=== PATIENT | female | born 1935 | race Caucasian/White ===

== ENCOUNTER → 2019-06-25 18:52 | Outpatient (ROUT) | payer MEDICARE, OTHER, SELFPAY ==
[2019-06-25 18:59] LABS: Add Manual Diff / Slide Review NO; Basophils Absolute Auto 0 /uL (0-100); Basophils Percent Auto 0.9 % (0-2); Eosinophils Absolute Auto 100 /uL (0-450); Eosinophils Percent Auto 2.1 % (2-4); Hemoglobin 12.2 g/dL (12.0-16.0); Lymphocytes Absolute Auto 900 /uL (1100-4500); Lymphocytes Percent Auto 18.4 % (25-40); Mean Corpuscular HGB Conc 32.9 % (30-36); Mean Corpuscular Hemoglobin 28.8 PG (26-34); Mean Corpuscular Volume 87.5 fL (80-100); Monocytes Absolute Auto 500 /uL (0-900); Monocytes Percent Auto 9.7 % (3-14); Neutrophils Absolute Auto 3400 /uL (1500-7000); Neutrophils Percent Auto 68.9 % (50-75); Platelet Count 284 X10^3/uL (150-400); Red Blood Cell Count 4.23 X10^6/uL (4.0-5.2); Red Cell Distribution Width 14.8 % (11.6-14.8); White Blood Cell Count 4.9 X10^3/uL (4.5-11.0)
[2019-06-25 19:08] LABS: Alanine Aminotransferase 13 IU/L (<35); Albumin 4.2 g/dL (3.5-5.0); Albumin Globulin Ratio 1.2 (1.0-2.8); Alkaline Phosphatase 84 U/L (38-126); Aspartate Aminotransferase 24 IU/L (14-36); Bilirubin Total 0.4 mg/dL (0.2-1.3); Blood Urea Nitrogen 19 mg/dL (7-17); Carbon Dioxide 28 mmol/L (22-32); Chloride 101 mmol/L (98-107); Cholesterol 187 mg/dL (140-199); Estimated Glomerular Filt Rate 52.8 mL/min (>60); Globulin 3.5 g/dL (1.7-4.1); Glucose 90 mg/dL (80-110); HDL Cholesterol 72 mg/dL (40-60); HEMOLYSIS < 15 (0-50); LDL Cholesterol Calculated 83 mg/dL (<100); Potassium 4.4 mmol/L (3.4-5.1); Sodium 136 mmol/L (137-145); Total Protein 7.7 g/dL (6.3-8.2); Triglycerides 158 mg/dL (35-150)
== END ==
PROVIDERS: Visit Provider Physician Assistant
DX: I10 Essential (primary) hypertension (principal); E78.5 Hyperlipidemia, unspecified
CPT/HCPCS: 80053; 80061; 85025

== ENCOUNTER → 2020-01-27 19:40 | Outpatient (ROUT) | payer MEDICARE, OTHER, SELFPAY ==
[2020-01-27 19:52] LABS: HEMOLYSIS < 15 (0-50); Iron 86 ug/dL (37-170)
[2020-01-27 19:53] LABS: Add Manual Diff / Slide Review NO; Basophils Absolute Auto 0 /uL (0-100); Basophils Percent Auto 0.4 % (0-2); Eosinophils Absolute Auto 100 /uL (0-450); Hematocrit 36.5 % (36-46); Hemoglobin 12.4 g/dL (12.0-16.0); Lymphocytes Absolute Auto 1300 /uL (1100-4500); Lymphocytes Percent Auto 17.4 % (25-40); Mean Corpuscular Hemoglobin 29.9 PG (26-34); Monocytes Absolute Auto 600 /uL (0-900); Monocytes Percent Auto 8.1 % (3-14); Neutrophils Absolute Auto 5400 /uL (1500-7000); Neutrophils Percent Auto 73.1 % (50-75); Platelet Count 241 X10^3/uL (150-400); Red Blood Cell Count 4.14 X10^6/uL (4.0-5.2); Red Cell Distribution Width 14.5 % (11.6-14.8); White Blood Cell Count 7.4 X10^3/uL (4.5-11.0)
[2020-01-27 19:56] LABS: Alanine Aminotransferase 11 IU/L (<35); Albumin Globulin Ratio 1.2 (1.0-2.8); Alkaline Phosphatase 81 U/L (38-126); Aspartate Aminotransferase 24 IU/L (14-36); BUN Creatinine Ratio 22.9 (6-22); Bilirubin Total 0.3 mg/dL (0.2-1.3); Blood Urea Nitrogen 25 mg/dL (7-17); Calcium 9.7 mg/dL (8.4-10.2); Carbon Dioxide 27 mmol/L (22-32); Chloride 100 mmol/L (98-107); Cholesterol 212 mg/dL (140-199); Estimated Glomerular Filt Rate 47.7 mL/min (>60); Globulin 3.3 g/dL (1.7-4.1); Glucose 97 mg/dL (80-110); HDL Cholesterol 52 mg/dL (40-60); HEMOLYSIS < 15 (0-50); LDL Cholesterol Calculated 99 mg/dL (<100); Potassium 4.9 mmol/L (3.4-5.1); Sodium 134 mmol/L (137-145); Total Protein 7.3 g/dL (6.3-8.2); Triglycerides 305 mg/dL (35-150)
[2020-01-27 20:02] LABS: Percent Iron Saturation 28 % (15-50); Total Iron Binding Capacity 312 ug/dL (265-497); Transferrin 241 mg/dL (206-381)
[2020-01-27 20:29] LABS: Ferritin 36 ng/mL (11-264)
== END ==
PROVIDERS: Visit Provider Physician Assistant
DX: I73.00 Raynaud's syndrome without gangrene (principal); D50.9 Iron deficiency anemia, unspecified; N32.81 Overactive bladder; R31.0 Gross hematuria; E78.5 Hyperlipidemia, unspecified
CPT/HCPCS: 80053; 80061; 82728; 83540; 83550; 85025

== ENCOUNTER → 2020-01-28 09:42 | Outpatient (CLI) | payer MEDICARE, OTHER, SELFPAY ==
[2020-01-28 10:07] LABS: RBC Urine None Seen (0-5/HPF)
[2020-01-28 11:11] LABS: Appearance Urine UA CLEAR; Bilirubin Urine UA NEGATIVE (NEGATIVE); Color Urine UA YELLOW; Glucose Urine UA NEGATIVE (Negative); Ketones Urine UA NEGATIVE (NEGATIVE); Leukocyte Esterase Urine UA 3+ (NEGATIVE); Nitrite Urine UA NEGATIVE (Negative); Occult Blood Urine UA TRACE-INTACT (Negative); Protein Urine UA NEGATIVE (Negative); Specific Gravity Urine UA <=1.005 (1.000-1.035); Urobilinogen Urine UA 0.2 E.U./dL (0.2); pH Urine UA 6.5 (4.5-8.0)
[2020-01-28 11:37] LABS: Bacteria Urine Few (2-10); Squamous Epithelial Cell Urine 0-1 /HPF (0-5/HPF); Urine Comments CULTURE ORDERED; WBC Urine 10-30/HPF (0-5/HPF)
== END ==
PROVIDERS: Referring Provider Physician Assistant; Visit Provider Physician Assistant
DX: I73.00 Raynaud's syndrome without gangrene (principal); D50.9 Iron deficiency anemia, unspecified; N32.81 Overactive bladder; R31.0 Gross hematuria; E78.5 Hyperlipidemia, unspecified
CPT/HCPCS: 81001; 87086

== ENCOUNTER → 2020-02-20 11:32 | Outpatient (CLI) | payer MEDICARE, OTHER, SELFPAY | PROVIDERS: PCP Physician Assistant; Visit Provider Specialist | DX: N39.0 Urinary tract infection, site not specified (principal); N95.2 Postmenopausal atrophic vaginitis; R31.0 Gross hematuria; Z87.440 Personal history of urinary (tract) infections | CPT/HCPCS: 81002; 87077; 87086; 87186; 99214 ==

== ENCOUNTER → 2020-05-13 15:17 | Outpatient (CLI) | payer MEDICARE, OTHER, SELFPAY | PROVIDERS: PCP Physician Assistant; Visit Provider Specialist | DX: N39.0 Urinary tract infection, site not specified (principal); R31.9 Hematuria, unspecified; N95.2 Postmenopausal atrophic vaginitis; Z87.440 Personal history of urinary (tract) infections | CPT/HCPCS: 51798; 81002; 87077; 87086; 87186; 99214 ==

== ENCOUNTER → 2020-07-24 18:32 | Outpatient (ROUT) | payer MEDICARE, OTHER, SELFPAY | PROVIDERS: PCP Physician Assistant; Visit Provider Physician Assistant | DX: R30.0 Dysuria (principal) | CPT/HCPCS: 87077; 87086; 87186 ==

== ENCOUNTER → 2020-11-28 11:01 | Outpatient (CLI) | payer MEDICARE, OTHER, SELFPAY ==
[2020-11-28 13:09] LABS: Appearance Urine UA CLEAR; Bilirubin Urine UA NEGATIVE (NEGATIVE); Color Urine UA YELLOW; Glucose Urine UA NEGATIVE (Negative); Ketones Urine UA NEGATIVE (NEGATIVE); Leukocyte Esterase Urine UA 2+ (NEGATIVE); Nitrite Urine UA NEGATIVE (Negative); Occult Blood Urine UA NEGATIVE (Negative); Protein Urine UA NEGATIVE (Negative); Specific Gravity Urine UA 1.015 (1.000-1.035); Urobilinogen Urine UA 0.2 E.U./dL (0.2)
[2020-11-28 13:11] LABS: RBC Urine None Seen (0-5/HPF); pH Urine UA 6.5 (4.5-8.0)
[2020-11-28 13:19] LABS: Bacteria Urine Many (>30); WBC Urine 5-10/HPF (0-5/HPF)
== END ==
PROVIDERS: PCP Physician Assistant; Referring Provider Physician Assistant; Visit Provider Physician Assistant
DX: R39.9 Unspecified symptoms and signs involving the genitourinary system (principal)
CPT/HCPCS: 81003; 81015; 87077; 87086; 87186

== ENCOUNTER → 2021-02-03 10:36 | Outpatient (CLI) | payer MEDICARE, OTHER, SELFPAY ==
--- NOTE | 2021-02-03 | DI.US.S_ITS ---
PROCEDURE: US RENAL COMPLETE INDICATIONS: RECURRENT UTI;COLOVAGINAL FISTULA TECHNIQUE: Real-time scanning was performed of the kidneys and bladder, with image documentation. COMPARISON: None. FINDINGS: Kidneys: Kidneys are normal in size. Right kidney measures 9.1 cm long; left kidney measures 8.6 cm long. Right renal cortical thickness is 1.4 cm; left renal cortical thickness is 1 point cm. Renal cortical echotexture is normal. No hydronephrosis or nephrolithiasis. No suspicious solid mass lesions. Bladder: Urinary bladder decompressed and Not requested.visualized. Miscellaneous: No free pelvic fluid. IMPRESSION: Grossly normal appearance of the kidneys. Dictated by: Balaji GARG Interpreted: Alexys Wilson MD on 02/03/2021 at 11:43 Transcribed by: NELIA on 02/03/2021 at 11:43 Approved by: Alexys Wilson M.D. on 02/03/2021 at 18:02
--- NOTE | 2021-02-03 | DI.US.S_ITS ---
PROCEDURE: US PELVIC COMPLETE INDICATIONS: RECURRENT UTI;COLOVAGINAL FISTULA TECHNIQUE: Real-time scanning was performed of the pelvic organs, with image documentation. Additional endovaginal scanning was necessary due to incomplete visualization of the adnexal and endometrial structures by transabdominal scanning. COMPARISON: CT, ABDOMEN/PELVIS WITH CONTRAST, 01/09/2017, 20:05. FINDINGS: Uterus: Uterus is normal in size at 3.3 x 2.5 x 1.9 cm. No fibroids seen. The endometrium measures 5 mm in combined thickness. Cervix and vagina appear within normal limits. Ovaries: Not seen. Other: No pathologic free abdominal or pelvic fluid. IMPRESSION: 1. No fistula is identified. Consider further evaluation with fluoroscopy with rectal contrast. 2. Uterus is within normal limits. 3. Endometrium is within normal limits measuring 0.5 cm. 4. Ovaries are not seen. Dictated by: Alexys Wilson M.D. on 02/03/2021 at 12:36 Approved by: Alexys Wilson M.D. on 02/03/2021 at 12:42
== END ==
PROVIDERS: PCP Physician Assistant; Referring Provider Urology; Visit Provider Urology
DX: N39.0 Urinary tract infection, site not specified (principal); N82.4 Other female intestinal-genital tract fistulae
CPT/HCPCS: 76770; 76830; 76856

== ENCOUNTER → 2022-01-12 10:34 | Outpatient (CLI) | payer MEDICARE, OTHER, SELFPAY ==
--- NOTE | 2022-01-12 | DI.CT.S_ITS ---
PROCEDURE: CT ABDOMEN PELVIS W CON INDICATIONS: Left upper quadrant pain TECHNIQUE: After the administration of oral and IV contrast, axial sections were acquired from the lung bases to the pubic symphysis. Coronal and sagittal reformats were performed. For radiation dose reduction, the following was used: automated exposure control, adjustment of mA and/or kV according to patient size. COMPARISON: [facility], CT, ABDOMEN/PELVIS WITH CONTRAST, 01/09/2017, 20:05. FINDINGS: Image quality: Excellent. Lung bases: Subpleural fibrotic changes are seen. Areas pleural calcification can be seen. There is a small to moderate hiatal hernia. Heart: No significant findings. ABDOMEN: Liver: A stable cyst versus hemangioma can be seen at the right liver dome measuring 8 mm. Gallbladder: Layering gallstones are seen within the gallbladder. No additional CT abnormality of the gallbladder can be seen. Biliary ducts: Unremarkable. Pancreas: Unremarkable. Spleen: Unremarkable. Adrenal Glands: Unremarkable. Kidneys and Ureters: Unremarkable. Stomach and Bowel: Moderate proximal gastric wall thickening can be seen. No significant small bowel abnormality is seen. Moderate to prominent sigmoid diverticulosis, without lashanda findings of active diverticulitis. There is a moderate amount of stool seen within the colon. No significant additional colonic abnormality can be seen. Peritoneum: No abnormal intraperitoneal fluid. No free air. Ventral Wall: A mild periumbilical hernia is seen, containing fat. Abdominal Nodes: No retroperitoneal or mesenteric adenopathy by size criteria. Vessels: Aorta and inferior vena cava are normal in size. PELVIS: Pelvic Organs: The uterus appears normal for age. No adnexal masses are seen. Bladder: Unremarkable. Pelvic Nodes: No enlarged lymph nodes. Miscellaneous: No inguinal hernias are seen. Bones: There is moderate levoconvex thoracolumbar scoliosis. IMPRESSION: Moderate generalized gastric wall thickening is seen, which is suspected to be on the basis of poor distention. If clinically appropriate, please consider upper endoscopy for further evaluation. No significant additional left upper quadrant abnormality can be seen. There is a moderate amount of stool seen within the colon. Please correlate with an underlying history of constipation. Incidental note is made of: Pleural calcification. Please correlate with a history of asbestos exposure. Subpleural fibrotic change can be seen. Small to moderate hiatal hernia Moderate levoconvex scoliosis Stable liver cyst versus hemangioma Layering gallstones Fat containing periumbilical hernia Moderate to prominent sigmoid diverticulosis, without active diverticulitis Dictated by: Adrian Greene M.D. on 01/12/2022 at 14:50 Approved by: Adrian Greene M.D. on 01/12/2022 at 14:54
== END ==
PROVIDERS: PCP Physician Assistant; Referring Provider Internal Medicine; Visit Provider Internal Medicine
DX: R10.12 Left upper quadrant pain (principal); K57.30 Diverticulosis of large intestine without perforation or abscess without bleeding; K42.9 Umbilical hernia without obstruction or gangrene; M41.86 Other forms of scoliosis, lumbar region; J94.8 Other specified pleural conditions; K80.20 Calculus of gallbladder without cholecystitis without obstruction
CPT/HCPCS: 74177; Q9967

== ENCOUNTER → 2022-12-29 14:45 | Outpatient (CLI) | payer MEDICARE, OTHER, SELFPAY | PROVIDERS: PCP Physician Assistant; Referring Provider Urology; Visit Provider Urology | DX: N39.0 Urinary tract infection, site not specified (principal); R31.0 Gross hematuria; N95.2 Postmenopausal atrophic vaginitis; Z87.440 Personal history of urinary (tract) infections | CPT/HCPCS: 81002; 87077; 87086; 87186; 99214 ==

== ENCOUNTER → 2022-12-30 13:06 | Outpatient (CLI) | payer MEDICARE, OTHER, SELFPAY ==
[2022-12-30 14:02] LABS: BUN Creatinine Ratio 18.4 (6-22); Blood Urea Nitrogen 18 mg/dL (7-17); Calcium 9.4 mg/dL (8.4-10.2); Carbon Dioxide 26 mmol/L (22-32); Chloride 96 mmol/L (98-107); Estimated Glomerular Filt Rate 56 mL/min (>60); Glucose 140 mg/dL (80-110); HEMOLYSIS < 15 (0-50); Potassium 4.4 mmol/L (3.4-5.1); Sodium 133 mmol/L (137-145)
== END ==
PROVIDERS: PCP Physician Assistant; Referring Provider Urology; Visit Provider Urology
DX: R31.0 Gross hematuria (principal); Z87.440 Personal history of urinary (tract) infections
CPT/HCPCS: 36415; 80048

== ENCOUNTER → 2023-01-04 08:33 | Outpatient (CLI) | payer MEDICARE, OTHER, SELFPAY ==
--- NOTE | 2023-01-04 08:44 | DI.CT.S_ITS ---
PROCEDURE: CT IVP A/P W/WO INDICATIONS: RECURRING URINARY TRACT INFECTIONS/GROSS HEMATURIA TECHNIQUE: Optional 5 mm thick noncontrast images acquired from the diaphragm to the symphysis pubis. After the administration of intravenous contrast, 5 mm thick images acquired from the diaphragm to the symphysis pubis after a 10-minute delay. 2 mm thick coronal and sagittal reformats were then performed of the kidneys and ureters. For radiation dose reduction, the following was used: automated exposure control, adjustment of mA and/or kV according to patient size. COMPARISON: CT 01/09/2017. FINDINGS: Image quality: Excellent. Lung bases: Pleural plaque within the posterior left lower lobe. Bronchiectasis with reticulation sparing the subpleural space. Heart size is normal. Small hiatal hernia. Urinary system: Both kidneys are normal in size, without hydronephrosis or nephrolithiasis on pre-contrast images. No perinephric fat stranding. There is normal bilateral renal enhancement. Renal calyces appear normal in morphology when filled with contrast. Opacified portions of both ureters demonstrate normal caliber. Bladder wall thickness is normal. No calcified bladder stones. Bladder is under distended. No complex renal cystic lesions which require follow-up. Other solid organs: Liver is normal in size and enhancement. Gallbladder contain stones . Biliary system is non dilated, accounting for age related dilation. Pancreas enhances normally. Spleen is normal in size and enhancement. No adrenal nodules. Peritoneum and bowel: Bowel loops demonstrate normal wall thickness and caliber. No free fluid or air. Nodes and vessels: No retroperitoneal or mesenteric adenopathy by size criteria. Aorta and inferior vena cava are normal in size. Abdominal wall: 1.7 x 0.9 centimeter soft tissue with enhancement along the lateral margin of left hemithorax (series 4, image 45); there appears to be a tract between the pleural space and this soft tissue mass. Pelvis: No pathologic free pelvic fluid. No inguinal hernias or adenopathy. Bones: No suspicious bony lesions. No vertebral body compression fractures. IMPRESSION: No nephrolithiasis or filling defect within the opacified renal collecting system or ureters. Under distended bladder, suboptimal for evaluation of bladder malignancy. 1.7 x 0.9 centimeter soft tissue with enhancement along the lateral margin of left hemithorax (series 4, image 45); there appears to be a tract between the pleural space and this soft tissue mass. Additionally, there is calcified pleural plaque with mild soft tissue in the posterior left lower lobe. Findings appear similar compared with 2017. Differential for this process includes pleurodesis with enhancing scar tissue, significantly less likely mesothelioma (given stability) with extension into the soft tissues. Correlate with surgical history. Basilar reticulation with sparing of the subpleural space within the lungs. 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 This has slightly progressed since 2017. Dictated by: Edvin Tyler M.D. on 01/04/2023 at 10:37 Approved by: Edvin Tyler M.D. on 01/04/2023 at 10:53
== END ==
PROVIDERS: PCP Physician Assistant; Referring Provider Urology; Visit Provider Urology
DX: R31.0 Gross hematuria (principal); Z87.440 Personal history of urinary (tract) infections
CPT/HCPCS: 74178; Q9967

== ENCOUNTER → 2023-01-11 09:18 | Outpatient (CLI) | payer MEDICARE, OTHER, SELFPAY | PROVIDERS: PCP Physician Assistant; Visit Provider Urology | DX: R31.0 Gross hematuria (principal); N95.2 Postmenopausal atrophic vaginitis; Z87.440 Personal history of urinary (tract) infections | CPT/HCPCS: 51798; 52000; 81002; 87086; 99213 ==

== ENCOUNTER → 2023-06-22 09:22 | Outpatient (CLI) | payer MEDICARE, OTHER, SELFPAY ==
[2023-06-22 11:38] LABS: Appearance Urine UA SL CLOUDY; Bilirubin Urine UA NEGATIVE (NEGATIVE); Color Urine UA YELLOW; Glucose Urine UA NEGATIVE (Negative); Ketones Urine UA NEGATIVE (NEGATIVE); Leukocyte Esterase Urine UA 3+ (NEGATIVE); Nitrite Urine UA NEGATIVE (Negative); Occult Blood Urine UA TRACE-INTACT (Negative); Protein Urine UA NEGATIVE (Negative); Urobilinogen Urine UA 0.2 E.U./dL (0.2)
[2023-06-22 11:47] LABS: Bacteria Urine Many (>30); RBC Urine None Seen (0-5/HPF); Squamous Epithelial Cell Urine 1-5 /HPF (0-5/HPF); WBC Urine 30-100/HPF (0-5/HPF)
[2023-06-22 11:48] LABS: Culture Indicated Urine Specimen Cultured
== END ==
PROVIDERS: PCP Physician Assistant; Referring Provider Urology; Visit Provider Urology
DX: Z87.440 Personal history of urinary (tract) infections (principal)
CPT/HCPCS: 81001; 87077; 87086; 87186

== ENCOUNTER → 2023-07-12 09:07 | Outpatient (CLI) | payer MEDICARE, OTHER, SELFPAY | PROVIDERS: PCP Physician Assistant; Visit Provider Urology | DX: N39.0 Urinary tract infection, site not specified (principal); N95.2 Postmenopausal atrophic vaginitis; R31.9 Hematuria, unspecified; R35.1 Nocturia; Z87.440 Personal history of urinary (tract) infections; Z87.898 Personal history of other specified conditions | CPT/HCPCS: 51798; 81002; 87077; 87086; 87186; 99214 ==

== ENCOUNTER → 2023-07-20 09:49 | Outpatient (CLI) | payer MEDICARE, OTHER, SELFPAY ==
[2023-07-20 13:24] LABS: Bilirubin Urine UA NEGATIVE (NEGATIVE); Color Urine UA YELLOW; Glucose Urine UA NEGATIVE (Negative); Ketones Urine UA NEGATIVE (NEGATIVE); Leukocyte Esterase Urine UA 2+ (NEGATIVE); Nitrite Urine UA POSITIVE (Negative); Occult Blood Urine UA NEGATIVE (Negative); Protein Urine UA NEGATIVE (Negative); Specific Gravity Urine UA 1.015 (1.000-1.035); Urobilinogen Urine UA 0.2 E.U./dL (0.2)
[2023-07-20 13:29] LABS: Appearance Urine UA SL CLOUDY; pH Urine UA 5.5 (4.5-8.0)
[2023-07-20 13:36] LABS: Bacteria Urine Many (>30); Calcium Oxalate Crystals Urine Occasional; Culture Indicated Urine Specimen Cultured; RBC Urine None Seen (0-5/HPF); Squamous Epithelial Cell Urine 0-1 /HPF (0-5/HPF); WBC Urine 5-10/HPF (0-5/HPF)
== END ==
PROVIDERS: PCP Physician Assistant; Referring Provider Urology; Visit Provider Urology
DX: R35.1 Nocturia (principal); N39.0 Urinary tract infection, site not specified; R31.9 Hematuria, unspecified; R31.0 Gross hematuria
CPT/HCPCS: 81001; 87077; 87086; 87186

== ENCOUNTER 2023-07-23 10:44 | Emergency (ER) | payer MEDICARE, OTHER, SELFPAY ==
[2023-07-23] VITALS (12 sets, daily range): BP systolic 172–231; BP diastolic 81–131; PULSE 70–97; RESP 20; TEMP 36.7; O2SAT 97–100; BMI 40.4
--- NOTE | 2023-07-23 10:51 | ED_ITS ---
HPI - Nausea/Vomiting/Diarrhea General Chief complaint: Urogenital-Female Stated complaint: Increased Nausea, UTI on ABX Time Seen by Provider: 07/23/23 10:50 History of Present Illness HPI Narrative: Patient is a 87 old female who has frequent UTIs is followed by urology presents today with nausea vomiting after starting Macrobid 2 days ago. She is previously tolerated 10 days of Macrobid without any issue. She has a urinalysis from July 20 with which does show E coli that is pansensitive. She has allergies to cephalexin penicillin and sulfa. Today she presents with significant vomiting. No significant abdominal pain. She continues to have frequent urination but she says the dysuria has improved. Related Data Home Medications Medication Instructions Recorded Confirmed citalopram 20 mg tablet 20 mg PO DAILY 02/20/20 01/11/23 omeprazole 20 mg capsule,delayed 20 mg PO DAILY 05/13/20 01/11/23 release Previous Rx's Medication Instructions Recorded nitrofurantoin 100 mg PO BID #6 caps 01/11/23 monohydrate/macrocrystals 100 mg capsule nitrofurantoin 100 mg PO BID #20 caps 06/26/23 monohydrate/macrocrystals 100 mg capsule nitrofurantoin 100 mg PO BID #20 caps 07/14/23 monohydrate/macrocrystals 100 mg capsule nitrofurantoin 100 mg PO BID #20 caps 07/19/23 monohydrate/macrocrystals 100 mg capsule levofloxacin 500 mg tablet 500 mg PO DAILY #5 tabs 07/23/23 ondansetron 4 mg disintegrating 4 mg PO Q8H PRN nausea and 07/23/23 tablet vomiting #10 tabs Allergies Allergy/AdvReac Type Severity Reaction Status Date / Time Sulfa (Sulfonamide Allergy Intermediate RASH Verified 07/23/23 11:16 Antibiotics) [SULFA (SULFONAMIDE ANTIBIOTICS)] cephalexin [CEPHALEXIN] Allergy Mild UNKNOWN Verified 07/23/23 11:16 azithromycin Allergy Verified 07/23/23 11:16 Penicillins Allergy Verified 07/23/23 11:16 potassium Allergy Verified 07/23/23 11:16 Patient History Medical History (Updated 07/23/23 @ 12:25 by Emma Hardin DO) History of gross hematuria Nocturia Postmenopausal atrophic vaginitis History of recurrent UTI (urinary tract infection) UTI (urinary tract infection) Peripheral vascular disease Anemia Gross hematuria History of recurrent UTI (urinary tract infection) Depression GERD (gastroesophageal reflux disease) Raynauds disease Surgical History H/O breast biopsy History of tonsillectomy Family History Brother Age: 92 Polio Brother Cancer Father Cancer Mother Cancer Social History Smoking Status: Never smoker Smoking Status: Never smoker Exam Initial Vital Signs Initial Vital Signs: Vital Signs Pulse Rate 97 H 07/23/23 10:47 Blood Pressure 231/131 H 07/23/23 10:47 Pulse Oximetry 99 07/23/23 10:47 GENERAL: Alert 87-year-old female nauseous just vomited prior to arrival HEENT: Head atraumatic,EOMI, pupils reactive, face symmetric, moist mucous membranes CARDIOVASCULAR: Regular rate and rhythm without murmurs, rubs or gallops. RESPIRATORY: Breath sounds equal bilaterally, no wheezes rales or rhonchi. ABDOMEN: Soft, nontender. Normoactive bowel sounds all 4 quadrants. No guarding or rebound. EXTREMITIES: Normal range of motion, no clubbing or edema. Neurovascularly intact NEUROLOGICAL: Alert and oriented x4.Normal gait and speech. SKIN: Warm, dry, no laceration, no petechiae, no rashes or lesions. Course Orders Ordered: ED Orders 07/23/23 10:55 CBC Auto Diff [Complete Blood Count AUTO DIFF] Stat CMP [Comprehensive Metabolic Panel] Stat Lactate (Lactic Acid) Stat Discontinued Medications Sodium Chloride (Normal Saline 0.9%) 1,000 mls @ 1,000 mls/hr IV BOLUS ONE Stop: 07/23/23 11:50 Last Infusion: 07/23/23 12:15 Dose: Infused Documented By: Admin: 07/23/23 11:17 Dose: 1,000 mls/hr Documented By: BRINA Levofloxacin (Levaquin) 500 mg in 100 mls @ 100 mls/hr IV NOW ONE Stop: 07/23/23 11:51 Last Infusion: 07/23/23 12:29 Dose: Infused Documented By: Admin: 07/23/23 11:17 Dose: 100 mls/hr Documented By: BRINA Ondansetron HCl (Ondansetron 4 Mg/2 Ml Inj) 4 mg IV NOW ONE Stop: 07/23/23 10:52 Last Admin: 07/23/23 11:28 Dose: Not Given Documented By: BRINA Vital Signs Vital signs: Vital Signs - 8 hr 07/23/23 10:47 07/23/23 10:47 07/23/23 10:51 Temperature 98.1 F Pulse Rate 97 H 87 Respiratory Rate 20 Blood Pressure 231/131 H 231/131 H Pulse Oximetry 99 100 Oxygen Delivery Method Room Air 07/23/23 11:02 07/23/23 11:30 07/23/23 11:31 Temperature Pulse Rate 78 71 Respiratory Rate Blood Pressure 172/82 H Pulse Oximetry 100 Oxygen Delivery Method 07/23/23 11:31 07/23/23 12:01 07/23/23 12:03 Temperature Pulse Rate 70 92 H Respiratory Rate Blood Pressure 214/97 H Pulse Oximetry 100 Oxygen Delivery Method 07/23/23 12:03 07/23/23 12:04 07/23/23 12:30 Temperature Pulse Rate 70 88 Respiratory Rate Blood Pressure 214/97 H Pulse Oximetry 99 97 Oxygen Delivery Method Room Air 07/23/23 12:31 07/23/23 12:32 07/23/23 12:34 Temperature Pulse Rate 80 Respiratory Rate Blood Pressure 201/95 H 180/81 H Pulse Oximetry 97 98 Oxygen Delivery Method Room Air MDM - Nausea/Vomiting/Diarrhea Lab Data 07/23/23 10:55 07/23/23 10:55 Labs: Lab Results 07/23/23 Range/Units 10:55 WBC 7.8 (4.5-11.0) X10^3/uL RBC 4.24 (4.0-5.2) X10^6/uL Hgb 12.8 (12.0-16.0) g/dL Hct 37.9 (36-46) % MCV 89.2 (80-100) fL MCH 30.1 (26-34) PG MCHC 33.7 (30-36) % RDW 13.5 (11.6-14.8) % Plt Count 324 (150-400) X10^3/uL Neut % (Auto) Not Reportable Lymph % (Auto) Not Reportable [place] % (Auto) Not Reportable Eos % (Auto) Not Reportable Baso % (Auto) Not Reportable Lymph # (Auto) Not Reportable [place] # (Auto) Not Reportable Baso # (Auto) Not Reportable Total Counted 100 Seg Neutrophils % 69.0 (38-70) % Lymphocytes % (Manual) 12.0 L (25-45) % Atypical Lymphs % 10.0 H ( - 0) % Monocytes % (Manual) 6.0 (2-11) % Eosinophils % (Manual) 2.0 (2-4) % Basophils % (Manual) 1.0 (0-1) % Neutrophils # (Manual) 5382 ([id number]) /uL Hypersegmented Neuts 1+ RBC Morphology See below Anisocytosis 1+ H Microcytosis 1+ H Sodium 134 L (137-145) mmol/L Potassium 3.8 (3.4-5.1) mmol/L Chloride 98 (98-107) mmol/L Carbon Dioxide 27 (22-32) mmol/L BUN 16 (7-17) mg/dL Creatinine 0.76 (0.52-1.04) mg/dL Estimated GFR > 60 (>60) mL/min BUN/Creatinine Ratio 21.1 (6-22) Glucose 122 H (80-110) mg/dL Lactate 1.7 (0.7-2.1) mmol/L Calcium 10.3 H (8.4-10.2) mg/dL Total Bilirubin 0.6 (0.2-1.3) mg/dL AST 29 (14-36) IU/L ALT 19 (<35) IU/L Alkaline Phosphatase 86 (38-126) U/L Total Protein 8.9 H (6.3-8.2) g/dL Albumin 4.4 (3.5-5.0) g/dL Globulin 4.5 H (1.7-4.1) g/dL Albumin/Globulin Ratio 1.0 (1.0-2.8) Urine Dip Bedside Urine Glucose Negative Bedside Urine Bilirubin - Negative Bedside Urine Ketone - Negative Urine Specific [place] 1.015 Bedside Urine Occult Blood - Negative Bedside Urine pH 7.0 Bedside Urine Protein ++ 100 Bedside Urine Urobilinogen - Negative Bedside Urine Nitrite - Negative Bedside Urine Leukocytes - Negative Esterase MDM Narrative Medical decision making narrative: Patient 79-year-old female presents to nausea vomiting was started on Macrobid for UTI. Cultures report pain sensitivity to E coli. However she is multiple allergies to medications. She has no abdominal pain chest pain or shortness of breath. She is overall feeling a lot better after Zofran and fluids. She is given IV Levaquin in the ED. vomiting has stopped. blood Pressure remained elevated but she is asymptomatic, and ultimately went down by discharge. Blood work reviewed: CBC and CMP have been reviewed there is no significant abnormality she has no leukocytosis or KAREEM. Calcium is minimally elevated at 10.3 but unlikely significant. At this time no imaging is required. Urine Culture Final 07/22/23 Organism 1 Escherichia coli [place] Count >100,000 CFU/ml Action to follow No Further Workup 1. Escherichia coli M.I.C. RX --------- --- * Amoxicillin/Clavulanate <=2 S * Ampicillin <=2 S * Ampicillin/Sulbactam <=2 S * Cefazolin <=4 S * Cefepime <=1 S * Ceftazidime <=1 S * Ceftriaxone <=1 S * Ciprofloxacin <=0.25 S * Ertapenem <=0.5 S * Gentamicin <=1 S * Imipenem <=0.25 S * Levofloxacin <=0.12 S * Nitrofurantoin <=16 S * Tobramycin <=1 S * Trimethoprim/Sulfamethoxazole <=20 S * Piperacillin/Tazobactam <=4 S Discharge Plan Departure Patient Disposition: Home Clinical Impression: Medication reaction, Vomiting, Acute UTI Instructions: DI for Urinary Tract Infection (UTI), DI for Vomiting -- Adult Activity Restrictions/Additional Instructions: *You have been diagnosed with probable medication reaction, nausea vomiting bladder infection *What to do: At this time we will change up your antibiotic to see if that helps. *Continue to take medications as directed Stop taking nitrofurantoin Start taking levofloxacin 1 pill once a day for 5 days, start tomorrow Zofran 4 mg every 8 hours if needed for nausea or vomiting *Follow up with your primary care provider in 2-3 days or call [phone] *Return to ER if you should have persistent vomiting weakness chest pain abdominal pain or any new, worsening or concerning symptoms Prescriptions: New ondansetron 4 mg tablet,disintegrating 4 mg PO Q8H PRN (Reason: nausea and vomiting) Qty: 10 0RF levofloxacin 500 mg tablet 500 mg PO DAILY Qty: 5 0RF No Action nitrofurantoin monohyd/m-cryst 100 mg capsule 100 mg PO BID Qty: 20 0RF Rx Instructions: must administer with a meal/food nitrofurantoin monohyd/m-cryst 100 mg capsule 100 mg PO BID Qty: 20 0RF Rx Instructions: must administer with a meal/food nitrofurantoin monohyd/m-cryst 100 mg capsule 100 mg PO BID Qty: 20 0RF Rx Instructions: must administer with a meal/food citalopram 20 mg tablet 20 mg PO DAILY nitrofurantoin monohyd/m-cryst 100 mg capsule 100 mg PO BID Qty: 6 0RF Rx Instructions: must administer with a meal/food omeprazole 20 mg capsule,delayed release(DR/EC) 20 mg PO DAILY Referrals: Fiorella Mccoy PA-C [Primary Care Provider] - Stand Alone Forms: Patient Portal/API
--- NOTE | 2023-07-23 11:09 | PC.NURSE ---
Pt presents with worsening nausea this morning when she woke up to use the bathroom. Pt states she did not vomit. She currently denies nausea. Pt able to stand up and pivot to give a urine sample on the commode. She denies urinary pain or burning and states she feels a great relief after peeing. Her last BM was this past 07/21. She denies abdominal pain.
[2023-07-23 11:16] LABS: Hematocrit 37.9 % (36-46); Hemoglobin 12.8 g/dL (12.0-16.0); Mean Corpuscular HGB Conc 33.7 % (30-36); Mean Corpuscular Hemoglobin 30.1 PG (26-34); Mean Corpuscular Volume 89.2 fL (80-100); Platelet Count 324 X10^3/uL (150-400); Red Blood Cell Count 4.24 X10^6/uL (4.0-5.2); Red Cell Distribution Width 13.5 % (11.6-14.8); White Blood Cell Count 7.8 X10^3/uL (4.5-11.0)
[2023-07-23] MEDS: levoFLOXacin 500 MG/100 ML PIGGYBACK 100 MG IV (11:17)
[2023-07-23] MEDS: SODIUM CHLORIDE 0.9% 1,000 ML 1000 ML IV (11:17)
[2023-07-23 11:18] LABS: Alanine Aminotransferase 19 IU/L (<35); Albumin 4.4 g/dL (3.5-5.0); Alkaline Phosphatase 86 U/L (38-126); Aspartate Aminotransferase 29 IU/L (14-36); BUN Creatinine Ratio 21.1 (6-22); Bilirubin Total 0.6 mg/dL (0.2-1.3); Blood Urea Nitrogen 16 mg/dL (7-17); Calcium 10.3 mg/dL (8.4-10.2); Carbon Dioxide 27 mmol/L (22-32); Chloride 98 mmol/L (98-107); Estimated Glomerular Filt Rate > 60 mL/min (>60); Globulin 4.5 g/dL (1.7-4.1); Glucose 122 mg/dL (80-110); HEMOLYSIS < 15 (0-50); Potassium 3.8 mmol/L (3.4-5.1); Sodium 134 mmol/L (137-145); Total Protein 8.9 g/dL (6.3-8.2)
[2023-07-23 11:19] LABS: Lactate (Lactic Acid) 1.7 mmol/L (0.7-2.1)
[2023-07-23 11:26] LABS: Add Manual Diff / Slide Review YES
[2023-07-23 11:38] LABS: Neutrophils Absolute Manual 5382 /uL (3000-5900); Total Cells Counted 100
[2023-07-23 11:40] LABS: Anisocytosis 1+; Hypersegmented Neutrophils 1+; Microcytosis 1+
== END 2023-07-23 12:40 | disposition home or self-care (01) ==
PROVIDERS: Emergency Provider Emergency Medicine; PCP Physician Assistant
DX: R11.2 Nausea with vomiting, unspecified (principal); T37.8X5A Adverse effect of other specified systemic anti-infectives and antiparasitics, initial encounter; N39.0 Urinary tract infection, site not specified
CPT/HCPCS: 36415; 80053; 81003; 83605; 85007; 85025; 96365; 99284; J1956

== ENCOUNTER → 2023-08-11 10:10 | Outpatient (CLI) | payer MEDICARE, OTHER, SELFPAY | PROVIDERS: PCP Physician Assistant; Visit Provider Urology | DX: N39.0 Urinary tract infection, site not specified (principal) | CPT/HCPCS: 87086 ==

== ENCOUNTER 2023-08-11 10:32 | Emergency (ER) | payer MEDICARE, OTHER, SELFPAY ==
[2023-08-11] VITALS (16 sets, daily range): BP systolic 149–230; BP diastolic 72–108; PULSE 72–107; RESP 18–31; TEMP 36.7; O2SAT 93–100; BMI 18.9
--- NOTE | 2023-08-11 10:59 | ED.GENADULT ---
HPI - General Adult General Chief complaint: Urogenital-Female Stated complaint: sent by Urology, vomiting Time Seen by Provider: 08/11/23 10:43 Source: patient Mode of arrival: Ambulatory Limitations: no limitations History of Present Illness HPI narrative: Patient is an 87-year-old female. She has a history of recurrent urinary tract infections. She was at the urologist's office this morning as scheduled visit. She stated that she had a urine sample done. They told her that she had bacteria in her urine however there were going to wait until the culture results before starting any antibiotics. She states that while she was at the office she had an episode of vomiting. She also states that she had a bowel movement. This is the 1st bowel movement that she has had in several days. She was sent to the emergency department for further evaluation. Here in the ER she states she has not having chest pain, shortness of breath, nausea, abdominal pain. She is coughing up quite a bit of phlegm. She denies any fevers. She states she has been drinking quite a bit of water recently trying to get herself to urinate. She currently has the urge to urinate. She feels like she is emptying her bladder. Related Data Home Medications Medication Instructions Recorded Confirmed citalopram 20 mg tablet 20 mg PO DAILY 02/20/20 01/11/23 omeprazole 20 mg capsule,delayed 20 mg PO DAILY 05/13/20 01/11/23 release Previous Rx's Medication Instructions Recorded nitrofurantoin 100 mg PO BID #6 caps 01/11/23 monohydrate/macrocrystals 100 mg capsule nitrofurantoin 100 mg PO BID #20 caps 06/26/23 monohydrate/macrocrystals 100 mg capsule nitrofurantoin 100 mg PO BID #20 caps 07/14/23 monohydrate/macrocrystals 100 mg capsule nitrofurantoin 100 mg PO BID #20 caps 07/19/23 monohydrate/macrocrystals 100 mg capsule levofloxacin 500 mg tablet 500 mg PO DAILY #5 tabs 07/23/23 ondansetron 4 mg disintegrating 4 mg PO Q8H PRN nausea and 07/23/23 tablet vomiting #10 tabs Allergies Allergy/AdvReac Type Severity Reaction Status Date / Time Sulfa (Sulfonamide Allergy Intermediate RASH Verified 07/23/23 11:16 Antibiotics) [SULFA (SULFONAMIDE ANTIBIOTICS)] cephalexin [CEPHALEXIN] Allergy Mild UNKNOWN Verified 07/23/23 11:16 azithromycin Allergy Verified 07/23/23 11:16 Penicillins Allergy Verified 07/23/23 11:16 potassium Allergy Verified 07/23/23 11:16 Review of Systems Review of Systems ROS Unobtainable: All systems reviewed & are unremarkable except as noted in HPI and below Patient History Medical History History of gross hematuria Nocturia Postmenopausal atrophic vaginitis History of recurrent UTI (urinary tract infection) UTI (urinary tract infection) Peripheral vascular disease Anemia Gross hematuria History of recurrent UTI (urinary tract infection) Depression GERD (gastroesophageal reflux disease) Raynauds disease Surgical History H/O breast biopsy History of tonsillectomy Family History Brother Age: 92 [place] Brother Cancer Father Cancer Mother Cancer Social History Smoking Status: Never smoker Smoking Status: Never smoker alcohol intake frequency: holidays/special occasions only Substance Use Type: does not use Exam Initial Vital Signs Initial Vital Signs: Vital Signs Pulse Rate 84 08/11/23 10:44 Blood Pressure 193/96 H 08/11/23 10:44 Const General: cooperative, comfortable and No ill appearing HENMT Head: normal to inspection and normocephalic Resp Effort & Inspection: normal respiratory effort Auscultation: clear to auscultation bilaterally Cardio Rate: regular rate Rhythm: regular rhythm GI Inspection: normal to inspection and non-distended Palpation: soft and No tender Skin General: no rashes or lesions noted Neuro General: patient alert, patient awake and moves all extremities Course Orders Ordered: ED Orders 08/11/23 10:50 Complete Blood Count AUTO DIFF Stat Comprehensive Metabolic Panel Stat Lipase Stat 08/11/23 11:09 XR abdomen 1V Stat 08/11/23 14:04 CT abdomen pelvis w con Stat Discontinued Medications Sodium Chloride (Normal Saline 0.9%) 1,000 mls @ 1,000 mls/hr IV BOLUS ONE Stop: 08/11/23 13:42 Last Infusion: 08/11/23 13:29 Dose: Infused Documented By: Admin: 08/11/23 12:45 Dose: 1,000 mls/hr Documented By: ANA ROSA Ondansetron HCl (Ondansetron 4 Mg/2 Ml Inj) 4 mg IV NOW ONE Stop: 08/11/23 13:41 Last Admin: 08/11/23 13:52 Dose: 4 mg Documented By: TELMA Vital Signs Vital signs: Vital Signs - 8 hr 08/11/23 10:44 08/11/23 10:44 08/11/23 10:50 Temperature 98.0 F Pulse Rate 84 75 Respiratory Rate 18 Blood Pressure 193/96 H 193/96 H Pulse Oximetry 99 Oxygen Delivery Method Room Air 08/11/23 11:00 08/11/23 11:01 08/11/23 11:01 Temperature Pulse Rate 79 Respiratory Rate Blood Pressure 160/92 H Pulse Oximetry 96 Oxygen Delivery Method 08/11/23 11:30 08/11/23 12:00 08/11/23 12:22 Temperature Pulse Rate 73 72 Respiratory Rate 29 H 24 Blood Pressure 149/108 H Pulse Oximetry 96 99 Oxygen Delivery Method 08/11/23 12:22 08/11/23 12:30 08/11/23 12:38 Temperature Pulse Rate 90 80 Respiratory Rate 29 H 27 H Blood Pressure 176/81 H Pulse Oximetry 94 97 Oxygen Delivery Method 08/11/23 12:38 08/11/23 13:00 08/11/23 13:00 Temperature Pulse Rate 77 78 Respiratory Rate 31 H 25 H Blood Pressure 171/79 H Pulse Oximetry 93 Oxygen Delivery Method 08/11/23 14:07 08/11/23 14:09 08/11/23 14:09 Temperature Pulse Rate 74 107 H Respiratory Rate 24 Blood Pressure 230/104 H Pulse Oximetry 99 96 Oxygen Delivery Method 08/11/23 14:11 08/11/23 14:11 08/11/23 14:30 Temperature Pulse Rate 91 H Respiratory Rate 30 H Blood Pressure 183/81 H 173/80 H Pulse Oximetry 100 Oxygen Delivery Method 08/11/23 14:30 08/11/23 14:39 08/11/23 14:39 Temperature Pulse Rate 80 72 Respiratory Rate 24 26 H Blood Pressure 168/75 H Pulse Oximetry 93 Oxygen Delivery Method Medical Decision Making Lab Data Lab results reviewed: Yes I reviewed the patient's lab results. 08/11/23 10:50 08/11/23 10:50 Labs: Lab Results 08/11/23 Range/Units 10:50 WBC 7.9 (4.5-11.0) X10^3/uL RBC 3.93 L (4.0-5.2) X10^6/uL Hgb 11.7 L (12.0-16.0) g/dL Hct 34.7 L (36-46) % MCV 88.2 (80-100) fL MCH 29.7 (26-34) PG MCHC 33.6 (30-36) % RDW 13.7 (11.6-14.8) % Plt Count 288 (150-400) X10^3/uL Neut % (Auto) 71.0 (50-75) % Lymph % (Auto) 17.7 L (25-40) % [place] % (Auto) 8.6 (3-14) % Eos % (Auto) 2.0 (2-4) % Baso % (Auto) 0.7 (0-2) % Neut # (Auto) 5600 (9117-0428) /uL Lymph # (Auto) 1400 (7500-7011) /uL [place] # (Auto) 700 (0-900) /uL Eos # (Auto) 200 (0-450) /uL Baso # (Auto) 100 (0-100) /uL Sodium 123 L (137-145) mmol/L Potassium 4.1 (3.4-5.1) mmol/L Chloride 90 L (98-107) mmol/L Carbon Dioxide 21 L (22-32) mmol/L BUN 20 H (7-17) mg/dL Creatinine 0.79 (0.52-1.04) mg/dL Estimated GFR > 60 (>60) mL/min BUN/Creatinine Ratio 25.3 H (6-22) Glucose 93 (80-110) mg/dL Calcium 9.5 (8.4-10.2) mg/dL Total Bilirubin 0.7 (0.2-1.3) mg/dL AST TNP ALT 17 (<35) IU/L Alkaline Phosphatase 77 (38-126) U/L Total Protein 8.4 H (6.3-8.2) g/dL Albumin 4.4 (3.5-5.0) g/dL Globulin 4.0 (1.7-4.1) g/dL Albumin/Globulin Ratio 1.1 (1.0-2.8) Lipase 308 H (23-300) U/L Imaging Data Abdominal x-ray: Radiologist's Impression: PROCEDURE: XR ABDOMEN 1V INDICATIONS: vomiting TECHNIQUE: One view of the abdomen acquired. COMPARISON: Merged With [facility], CT, CT IVP A/P W/WO, 01/04/2023, 8:46. FINDINGS: Surgical changes and devices: None. Bowel: Bowel gas pattern is normal. Soft tissues: No suspicious abdominal calcifications. Visualized solid organ contours appear normal in size. Bones: Left convex scoliosis is redemonstrated, unchanged from the CT dated January 04, 2023. IMPRESSION: No acute abnormality. CT scan - abdomen/pelvis: Radiologist's Impression: PROCEDURE: CT ABDOMEN PELVIS W CON INDICATIONS: Vomiting, constipation, lightheadedness TECHNIQUE: After the administration of intravenous contrast, axial sections acquired from the lung bases to the pubic symphysis. Coronal and sagittal reformats were performed. For radiation dose reduction, the following was used: automated exposure control, adjustment of mA and/or kV according to patient size. COMPARISON: Merged With [facility], CT, CT IVP A/P W/WO, 01/04/2023, 8:46. Merged With [facility], CT, CT ABDOMEN PELVIS W CON, 01/12/2022, 12:27. Merged With [facility], CT, ABDOMEN/PELVIS WITH CONTRAST, 01/09/2017, 20:05. FINDINGS: Image quality: Diagnostic. Lower Chest: Stable chronic lung disease, granuloma left lower lobe, chronic posterior left pleural calcifications. Small hiatal hernia. ABDOMEN: Liver: No solid mass. Gallbladder: Scattered nonobstructive partially calcified gallstones again noted. Biliary ducts: No biliary dilation. Pancreas: No ductal dilation. Spleen: Size is within normal limits. Adrenal Glands: No adrenal nodules. Kidneys and Ureters: No hydronephrosis. No solid mass. No complex renal cystic lesion which requires follow up. Stomach and Bowel: Normal colonic caliber, without significant wall thickening. [id number] colonic obstipation. Peritoneum: No abnormal intraperitoneal fluid. No free air. Ventral Wall: No hernia. Abdominal Nodes: No retroperitoneal or mesenteric adenopathy by size criteria. Vessels: Aorta and inferior vena cava are normal in size. PELVIS: Pelvic Organs: Unremarkable. Bladder: Unremarkable. Pelvic Nodes: No enlarged lymph nodes. Miscellaneous: No inguinal hernias are seen. [id number]-[id number] chronic obstipation. Bones: No aggressive osseous abnormality. IMPRESSION: No intestinal obstruction or perforation. Chronic colonic obstipation, [id number]-[id number] in severity. Gallstones again noted within the gallbladder lumen which does not show evidence of acute inflammation or adjacent biliary distension. Chronic lung disease, chronic pleural calcifications on the left. Overall no definite acute disease. MDM Narrative Medical decision making narrative: Patient states she is feeling better after fluids. CT scan shows quite a bit of stool in the colon. Sounds like she has had some issues with constipation recently but she did have soft bowel movement this morning. I suspect that her hyponatremia is because she was drinking so much water this morning in order to urinate. No fevers. She feels better after Zofran as well. She has Zofran at home. We discussed a good bowel regimen. We are going to wait until the urine culture results from the clinic visit earlier today before starting any antibiotics. She was given return precautions. She expressed understanding and agreement. Discharge Plan Departure Patient Disposition: Home Clinical Impression: Constipation Instructions: DI for Constipation Activity Restrictions/Additional Instructions: I do recommend that you continue with the bowel regimen to include a laxative like we discussed. You should be receiving a call from the urology clinic when the urine culture results if they need to start you on antibiotics. Return to the emergency department for new symptoms. Prescriptions: No Action nitrofurantoin monohyd/m-cryst 100 mg capsule 100 mg PO BID Qty: 20 0RF Rx Instructions: must administer with a meal/food nitrofurantoin monohyd/m-cryst 100 mg capsule 100 mg PO BID Qty: 20 0RF Rx Instructions: must administer with a meal/food nitrofurantoin monohyd/m-cryst 100 mg capsule 100 mg PO BID Qty: 20 0RF Rx Instructions: must administer with a meal/food ondansetron 4 mg tablet,disintegrating 4 mg PO Q8H PRN (Reason: nausea and vomiting) Qty: 10 0RF levofloxacin 500 mg tablet 500 mg PO DAILY Qty: 5 0RF citalopram 20 mg tablet 20 mg PO DAILY nitrofurantoin monohyd/m-cryst 100 mg capsule 100 mg PO BID Qty: 6 0RF Rx Instructions: must administer with a meal/food omeprazole 20 mg capsule,delayed release(DR/EC) 20 mg PO DAILY Referrals: Fiorella Mccoy PA-C [Primary Care Provider] - Stand Alone Forms: Patient Portal/API
--- NOTE | 2023-08-11 11:09 | DI.RAD.S_ITS ---
PROCEDURE: XR ABDOMEN 1V INDICATIONS: vomiting TECHNIQUE: One view of the abdomen acquired. COMPARISON: [facility], CT, CT IVP A/P W/WO, 01/04/2023, 8:46. FINDINGS: Surgical changes and devices: None. Bowel: Bowel gas pattern is normal. Soft tissues: No suspicious abdominal calcifications. Visualized solid organ contours appear normal in size. Bones: Left convex scoliosis is redemonstrated, unchanged from the CT dated January 04, 2023. IMPRESSION: No acute abnormality. Dictated by: Yani Steward M.D. on 08/11/2023 at 12:10 Approved by: Yani Steward M.D. on 08/11/2023 at 12:11
[2023-08-11 11:20] LABS: Add Manual Diff / Slide Review NO; Basophils Absolute Auto 100 /uL (0-100); Basophils Percent Auto 0.7 % (0-2); Eosinophils Absolute Auto 200 /uL (0-450); Hematocrit 34.7 % (36-46); Hemoglobin 11.7 g/dL (12.0-16.0); Lymphocytes Absolute Auto 1400 /uL (1100-4500); Lymphocytes Percent Auto 17.7 % (25-40); Mean Corpuscular HGB Conc 33.6 % (30-36); Mean Corpuscular Hemoglobin 29.7 PG (26-34); Mean Corpuscular Volume 88.2 fL (80-100); Monocytes Absolute Auto 700 /uL (0-900); Monocytes Percent Auto 8.6 % (3-14); Neutrophils Absolute Auto 5600 /uL (1500-7000); Platelet Count 288 X10^3/uL (150-400); Red Blood Cell Count 3.93 X10^6/uL (4.0-5.2); Red Cell Distribution Width 13.7 % (11.6-14.8); White Blood Cell Count 7.9 X10^3/uL (4.5-11.0)
[2023-08-11 11:46] LABS: Alanine Aminotransferase 17 IU/L (<35); Albumin 4.4 g/dL (3.5-5.0); Albumin Globulin Ratio 1.1 (1.0-2.8); Alkaline Phosphatase 77 U/L (38-126); BUN Creatinine Ratio 25.3 (6-22); Bilirubin Total 0.7 mg/dL (0.2-1.3); Blood Urea Nitrogen 20 mg/dL (7-17); Calcium 9.5 mg/dL (8.4-10.2); Carbon Dioxide 21 mmol/L (22-32); Chloride 90 mmol/L (98-107); Estimated Glomerular Filt Rate > 60 mL/min (>60); Glucose 93 mg/dL (80-110); Lipase 308 U/L (23-300); Potassium 4.1 mmol/L (3.4-5.1); Sodium 123 mmol/L (137-145); Total Protein 8.4 g/dL (6.3-8.2)
[2023-08-11] MEDS: SODIUM CHLORIDE 0.9% 1,000 ML 1000 ML IV (12:45)
[2023-08-11] MEDS: ONDANSETRON 4 MG/2 ML INJ IV (13:52)
--- NOTE | 2023-08-11 14:03 | PC.NURSE ---
ambulated to the bathroom with walker.
--- NOTE | 2023-08-11 14:04 | DI.CT.S_ITS ---
PROCEDURE: CT ABDOMEN PELVIS W CON INDICATIONS: Vomiting, constipation, lightheadedness TECHNIQUE: After the administration of intravenous contrast, axial sections acquired from the lung bases to the pubic symphysis. Coronal and sagittal reformats were performed. For radiation dose reduction, the following was used: automated exposure control, adjustment of mA and/or kV according to patient size. COMPARISON: [facility], CT, CT IVP A/P W/WO, 01/04/2023, 8:46. [facility], CT, CT ABDOMEN PELVIS W CON, 01/12/2022, 12:27. [facility], CT, ABDOMEN/PELVIS WITH CONTRAST, 01/09/2017, 20:05. FINDINGS: Image quality: Diagnostic. Lower Chest: Stable chronic lung disease, granuloma left lower lobe, chronic posterior left pleural calcifications. Small hiatal hernia. ABDOMEN: Liver: No solid mass. Gallbladder: Scattered nonobstructive partially calcified gallstones again noted. Biliary ducts: No biliary dilation. Pancreas: No ductal dilation. Spleen: Size is within normal limits. Adrenal Glands: No adrenal nodules. Kidneys and Ureters: No hydronephrosis. No solid mass. No complex renal cystic lesion which requires follow up. Stomach and Bowel: Normal colonic caliber, without significant wall thickening. Qbyd-ax-wmbxvpyu colonic obstipation. Peritoneum: No abnormal intraperitoneal fluid. No free air. Ventral Wall: No hernia. Abdominal Nodes: No retroperitoneal or mesenteric adenopathy by size criteria. Vessels: Aorta and inferior vena cava are normal in size. PELVIS: Pelvic Organs: Unremarkable. Bladder: Unremarkable. Pelvic Nodes: No enlarged lymph nodes. Miscellaneous: No inguinal hernias are seen. Neqi-bi-bacgukfu chronic obstipation. Bones: No aggressive osseous abnormality. IMPRESSION: No intestinal obstruction or perforation. Chronic colonic obstipation, hezq-tk-yxkyxsle in severity. Gallstones again noted within the gallbladder lumen which does not show evidence of acute inflammation or adjacent biliary distension. Chronic lung disease, chronic pleural calcifications on the left. Overall no definite acute disease. Dictated by: David Quintanilla M.D. on 08/11/2023 at 14:39 Approved by: aDvid Quintanilla M.D. on 08/11/2023 at 14:48
[2023-08-11 15:22] LABS: Aspartate Aminotransferase 56 IU/L (14-36); HEMOLYSIS 44 (0-50)
== END 2023-08-11 15:30 | disposition home or self-care (01) ==
PROVIDERS: Emergency Provider Emergency Medicine; PCP Physician Assistant
DX: K59.00 Constipation, unspecified (principal); R11.2 Nausea with vomiting, unspecified; N39.0 Urinary tract infection, site not specified; N95.2 Postmenopausal atrophic vaginitis; R35.1 Nocturia; R68.89 Other general symptoms and signs; R53.81 Other malaise; R53.83 Other fatigue; Z87.440 Personal history of urinary (tract) infections; Z87.898 Personal history of other specified conditions
CPT/HCPCS: 36415; 51798; 74018; 74177; 80053; 81002; 83690; 85025; 87086; 96374; 99214; 99284; J2405

== ENCOUNTER → 2023-08-14 10:01 | Outpatient (CLI) | payer MEDICARE, OTHER, SELFPAY ==
[2023-08-14 13:20] LABS: Alanine Aminotransferase 15 IU/L (<35); Albumin 4.2 g/dL (3.5-5.0); Albumin Globulin Ratio 1.1 (1.0-2.8); Alkaline Phosphatase 68 U/L (38-126); Aspartate Aminotransferase 25 IU/L (14-36); BUN Creatinine Ratio 19.8 (6-22); Bilirubin Total 0.5 mg/dL (0.2-1.3); Blood Urea Nitrogen 17 mg/dL (7-17); Calcium 10.1 mg/dL (8.4-10.2); Carbon Dioxide 28 mmol/L (22-32); Chloride 93 mmol/L (98-107); Estimated Glomerular Filt Rate > 60 mL/min (>60); Globulin 3.9 g/dL (1.7-4.1); Glucose 96 mg/dL (80-110); HEMOLYSIS < 15 (0-50); Potassium 4.5 mmol/L (3.4-5.1); Sodium 130 mmol/L (137-145); Total Protein 8.1 g/dL (6.3-8.2)
== END ==
LOC: LAB 10:03
PROVIDERS: PCP Family Medicine; Referring Provider Family Medicine; Visit Provider Family Medicine
DX: I10 Essential (primary) hypertension (principal)
CPT/HCPCS: 36415; 80053

== ENCOUNTER → 2023-09-29 11:48 | Outpatient (CLI) | payer MEDICARE, OTHER, SELFPAY ==
[2023-09-29 12:10] LABS: Appearance Urine UA CLEAR; Bilirubin Urine UA NEGATIVE (NEGATIVE); Color Urine UA YELLOW; Glucose Urine UA NEGATIVE (Negative); Ketones Urine UA NEGATIVE (NEGATIVE); Leukocyte Esterase Urine UA 1+ (NEGATIVE); Nitrite Urine UA POSITIVE (Negative); Occult Blood Urine UA NEGATIVE (Negative); Protein Urine UA TRACE (Negative); Specific Gravity Urine UA 1.015 (1.000-1.035); Urobilinogen Urine UA 0.2 E.U./dL (0.2)
[2023-09-29 12:11] LABS: Urine Volume 10mL (spun); pH Urine UA 5.5 (4.5-8.0)
[2023-09-29 12:16] LABS: Bacteria Urine Many (>30); Culture Indicated Urine Specimen Cultured; RBC Urine None Seen (0-5/HPF); Squamous Epithelial Cell Urine 0-1 /HPF (0-5/HPF); WBC Urine 5-10/HPF (0-5/HPF)
== END ==
PROVIDERS: PCP Family Medicine; Visit Provider Family Medicine
DX: N39.0 Urinary tract infection, site not specified (principal)
CPT/HCPCS: 81001; 87077; 87086; 87186

== ENCOUNTER → 2023-10-13 14:30 | Outpatient (CLI) | payer MEDICARE, OTHER, SELFPAY | PROVIDERS: PCP Family Medicine; Visit Provider Family Medicine | DX: Z87.440 Personal history of urinary (tract) infections (principal) | CPT/HCPCS: 87077; 87086; 87186 ==

== ENCOUNTER → 2023-10-18 16:38 | Outpatient (CLI) | payer MEDICARE, OTHER, SELFPAY | PROVIDERS: PCP Family Medicine; Visit Provider Family Medicine | DX: Z87.440 Personal history of urinary (tract) infections (principal) | CPT/HCPCS: 87086 ==

== ENCOUNTER → 2023-12-04 11:39 | Outpatient (CLI) | payer MEDICARE, OTHER, SELFPAY ==
[2023-12-04 14:27] LABS: Appearance Urine UA SL CLOUDY; Bilirubin Urine UA NEGATIVE (NEGATIVE); Color Urine UA YELLOW; Glucose Urine UA NEGATIVE (Negative); Ketones Urine UA TRACE (NEGATIVE); Leukocyte Esterase Urine UA 2+ (NEGATIVE); Nitrite Urine UA POSITIVE (Negative); Occult Blood Urine UA NEGATIVE (Negative); Protein Urine UA NEGATIVE (Negative); Urobilinogen Urine UA 0.2 E.U./dL (0.2)
[2023-12-04 14:43] LABS: Bacteria Urine Many (>30); Culture Indicated Urine Specimen Cultured; RBC Urine None Seen (0-5/HPF); Squamous Epithelial Cell Urine 1-5 /HPF (0-5/HPF); Urine Volume 10mL (spun); WBC Urine 10-30/HPF (0-5/HPF)
== END ==
PROVIDERS: PCP Family Medicine; Referring Provider Family Medicine; Visit Provider Family Medicine
DX: R30.0 Dysuria (principal)
CPT/HCPCS: 81001; 87077; 87086

== ENCOUNTER 2023-12-07 10:09 | Emergency (ER) | payer MEDICARE, OTHER, SELFPAY ==
[2023-12-07] VITALS (7 sets, daily range): BP systolic 210; BP diastolic 89; PULSE 81–92; RESP 20; TEMP 36.8; O2SAT 92–97; BMI 18.1
--- NOTE | 2023-12-07 10:19 | DI.CT.S_ITS ---
PROCEDURE: CT KIDNEY URETER BLADDER (KUB) INDICATIONS: intermittent flank pain, UTI, chills, rigors TECHNIQUE: Axial sections were acquired from the lung bases to the pubic symphysis. Coronal and sagittal reformats were performed. For radiation dose reduction, the following was used: automated exposure control, adjustment of mA and/or kV according to patient size. COMPARISON: CT, CT IVP A/P W/WO, 01/04/2023, 8:46. CT, CT ABDOMEN PELVIS W CON, 01/12/2022, 12:27. [facility], CT, CT ABDOMEN PELVIS W CON, 08/11/2023, 13:52. FINDINGS: Image quality: Diagnostic. Lower Chest: There are calcified pleural plaques and pleural thickening in the left hemithorax. A calcified nodule in the left lower lobe, most likely an old granuloma. Lower lobe subpleural septal thickening and pulmonary fibrosis. There is a moderate-sized hiatal hernia. URINARY: Right Kidney: No stones or hydronephrosis. Right Ureter: No hydroureter. Left Kidney: No stones or hydronephrosis. Left Ureter: No hydroureter. Bladder: Normal wall thickness. No stones. ABDOMEN: Liver: No contour-deforming solid mass. Gallbladder: There are gallstones. Gallbladder is distended. No gallbladder wall thickening or pericholecystic fluid collection Biliary ducts: No biliary dilation. Pancreas: No ductal dilation. Spleen: Size is within normal limits. Adrenal Glands: No adrenal nodules. Stomach and Bowel: Normal bowel caliber, without significant wall thickening. There is a large amount of stool in colon. Diverticulosis without diverticulitis. Peritoneum: No abnormal intraperitoneal fluid. No free air. Ventral Wall: No hernia. Abdominal Nodes: No enlarged retroperitoneal or mesenteric lymph nodes. Vessels: Aorta and inferior vena cava are normal in size. PELVIS: Pelvic Organs: Unremarkable. Pelvic Nodes: Unremarkable. Miscellaneous: No inguinal hernias are seen. Bones: Moderate levoscoliosis. Xhuydnkm-vb-lnnmyp spondylitic changes in lumbar spine. IMPRESSION: 1. No obstructing stones or hydronephrosis. 2. Cholelithiasis. Gallbladder is distended. No gallbladder wall thickening or pericholecystic fluid. 3. Pleural thickening and calcified pleural plaques in the left hemithorax, which probably secondary to prior hemothorax, infection (empyema) or pleural disease. Recommend clinical correlation. 4. Diverticulosis without diverticulitis. 5. A moderate-sized hiatal hernia. 6. Scoliosis and spondylitic changes in lumbar spine. 7. Thickening interstitium and pulmonary fibrosis in visualized lung. Dictated by: Mandi Rahman M.D. on 12/07/2023 at 12:20 Approved by: Mandi Rahman M.D. on 12/07/2023 at 12:50
--- NOTE | 2023-12-07 10:23 | ED.GENADULT ---
HPI - General Adult General Chief complaint: Urogenital-Female Stated complaint: UTI,nausea Time Seen by Provider: 12/07/23 10:19 Source: patient, EMS, RN notes reviewed and old records reviewed Mode of arrival: EMS Limitations: no limitations History of Present Illness HPI narrative: 87-year-old female who presents with complaint urinary symptoms with dysuria urgency and frequency starting, patient had a UA dropped off on Monday she has not heard back results she has the result but not been contacted. Patient states she continues to have symptoms she has had a little bit intermittent flank pain although she states it does not hurt currently. She denies any anterior abdominal pain. She has had chills and but no objective fevers. She states no chest pain or shortness of breath. Patient states no nausea or vomiting. No diarrhea constipation. She has not had a bowel movement since yesterday but states passing gas regularly. No swelling in extremities. Patient states she does have multiple medication allergies and they have talked about being tested with an pipeline integrity engineer for 2 allergies she has a penicillin cephalexin allergy. Allergy to sulfa and often has resistance to Cipro on her UA with recurrent UTIs. Patient states no tobacco, occasional alcohol, no recreational drugs. She lives independently with her at [facility]. Her primary care physician is Dr. Oquendo. Related Data Home Medications Medication Instructions Recorded Confirmed omeprazole 20 mg capsule,delayed 20 mg PO DAILY 05/13/20 09/29/23 release Previous Rx's Medication Instructions Recorded estradiol 2 mg (7.5 mcg/24 hour) 1 vag ring vaginal [id number] #1 ea 09/29/23 vaginal ring (Estring) gabapentin 100 mg capsule 200 mg (2 x 100 mg) PO BEDTIME 09/29/23 #180 caps lisinopril 10 mg tablet 10 mg PO DAILY Control blood 09/29/23 pressure #90 tabs phenazopyridine 100 mg tablet 100 mg PO TID PRN pain #30 tabs 09/29/23 (Pyridium) nitrofurantoin macrocrystal 100 mg 100 mg PO Q12H #14 caps 10/13/23 capsule nitrofurantoin 100 mg PO Q12H 7 days #14 caps 12/07/23 monohydrate/macrocrystals 100 mg capsule (Macrobid) Allergies Allergy/AdvReac Type Severity Reaction Status Date / Time Sulfa (Sulfonamide Allergy Intermediate RASH Verified 10/13/23 13:59 Antibiotics) [SULFA (SULFONAMIDE ANTIBIOTICS)] cephalexin [CEPHALEXIN] Allergy Mild UNKNOWN Verified 10/13/23 13:59 azithromycin Allergy Verified 10/13/23 13:59 Penicillins Allergy Verified 10/13/23 13:59 potassium Allergy Verified 10/13/23 13:59 Review of Systems Review of Systems ROS Unobtainable: All systems reviewed & are unremarkable except as noted in HPI and below Patient History Medical History Peripheral neuropathy Hypertension History of gross hematuria Nocturia Postmenopausal atrophic vaginitis History of recurrent UTI (urinary tract infection) UTI (urinary tract infection) Peripheral vascular disease Anemia Gross hematuria History of recurrent UTI (urinary tract infection) Depression GERD (gastroesophageal reflux disease) Raynauds disease Surgical History H/O breast biopsy History of tonsillectomy Family History Brother Age: 92 Polio Brother Cancer Father Cancer Mother Cancer Social History Smoking Status: Never smoker Smoking Status: Never smoker alcohol intake frequency: holidays/special occasions only Substance Use Type: does not use Exam Narrative Exam Narrative: GEN: Elderly female, alert and oriented x 3, patient appears to be in mild distress. HEENT: Atraumatic, pupils are equal round reactive to light, extraocular movements are intact, nares are clear, there is no conjunctival pallor. HEART: Regular rate and rhythm without murmur, clicks, rubs. Pulses are equal in upper and lower extremities LUNGS:Lungs clear to auscultation, no wheezes, rales, crackles, chest moves symmetrically ABD:bowel sounds normal, soft, non-tender, no guarding, rebound, rigidity, no masses noted, no hepatosplenomegaly :No CVA tenderness bilaterally. MSCL: Non-tender, no muscle atrophy, muscles strength 5/5 upper and lower extremities, full range of motion NEURO:CN 2-12 intact, sensation normal SKIN: No rash, erythema or other skin changes noted. Initial Vital Signs Initial Vital Signs: Vital Signs Pulse Rate 92 H 12/07/23 10:35 Pulse Oximetry 93 12/07/23 10:35 Course Orders Ordered: ED Orders 12/07/23 10:19 CT kidney ureter bladder (KUB) Stat 12/07/23 10:30 Complete Blood Count AUTO DIFF Stat Comprehensive Metabolic Panel Stat Lactate (Lactic Acid) Stat Procalcitonin Stat 12/07/23 11:15 Blood Culture Stat 12/07/23 12:25 Urinalysis and Microscopic Stat Urine Culture Stat Discontinued Medications Sodium Chloride (Normal Saline 0.9%) 1,000 mls @ 1,000 mls/hr IV BOLUS ONE Stop: 12/07/23 11:21 Last Infusion: 12/07/23 12:39 Dose: Infused Documented By: Admin: 12/07/23 11:28 Dose: 1,000 mls/hr Documented By: RAMYA Nitrofurantoin Macrocrystals (Nitrofurantoin Er 100 Mg Capsule) 100 mg PO NOW ONE Stop: 12/07/23 10:20 Last Admin: 12/07/23 11:28 Dose: 100 mg Documented By: RAMYA Vital Signs Vital signs: Vital Signs - 8 hr 12/07/23 11:30 12/07/23 12:00 12/07/23 12:30 Pulse Rate 86 87 82 Pulse Oximetry 96 92 97 Medical Decision Making Lab Data 12/07/23 10:30 12/07/23 10:30 Labs: Lab Results 12/07/23 12/07/23 Range/Units 10:30 12:25 WBC 8.6 (4.5-11.0) X10^3/uL RBC 3.95 L (4.0-5.2) X10^6/uL Hgb 11.9 L (12.0-16.0) g/dL Hct 35.3 L (36-46) % MCV 89.5 (80-100) fL MCH 30.1 (26-34) PG MCHC 33.7 (30-36) % RDW 14.5 (11.6-14.8) % Plt Count 260 (150-400) X10^3/uL Neut % (Auto) 94.5 H (50-75) % Lymph % (Auto) 3.9 L (25-40) % [place] % (Auto) 1.2 L (3-14) % Eos % (Auto) 0.2 L (2-4) % Baso % (Auto) 0.2 (0-2) % Neut # (Auto) 8200 H (3681-6955) /uL Lymph # (Auto) 300 L (6905-6823) /uL [place] # (Auto) 100 (0-900) /uL Eos # (Auto) 0 (0-450) /uL Baso # (Auto) 0 (0-100) /uL Sodium 137 (137-145) mmol/L Potassium 4.2 (3.4-5.1) mmol/L Chloride 103 (98-107) mmol/L Carbon Dioxide 27 (22-32) mmol/L BUN 31 H (7-17) mg/dL Creatinine 0.96 (0.52-1.04) mg/dL Estimated GFR 57 L (>60) mL/min BUN/Creatinine Ratio 32.3 H (6-22) Glucose 128 H (80-110) mg/dL Lactate 1.6 (0.7-2.1) mmol/L Calcium 9.9 (8.4-10.2) mg/dL Total Bilirubin 0.8 (0.2-1.3) mg/dL AST 26 (14-36) IU/L ALT 16 (<35) IU/L Alkaline Phosphatase 78 (38-126) U/L Total Protein 8.8 H (6.3-8.2) g/dL Albumin 4.8 (3.5-5.0) g/dL Globulin 4.0 (1.7-4.1) g/dL Albumin/Globulin Ratio 1.2 (1.0-2.8) Procalcitonin 0.49 (<0.5) ng/mL Urine Color Yellow Urine Appearance Cloudy Urine pH 6.5 (4.5-8.0) Ur Specific [place] 1.015 (1.000-1.035) Urine Protein Negative (Negative) Urine Glucose (UA) Negative (Negative) g/dL Urine Ketones Negative (NEGATIVE) Urine Occult Blood Negative (Negative) Urine Nitrate Negative (Negative) Urine Bilirubin Negative (NEGATIVE) Urine Urobilinogen 0.2 (0.2) E.U./dL Ur Leukocyte Esterase Trace H (NEGATIVE) Urine RBC 0-1/hpf (0-5/HPF) Urine WBC 10-30/hpf H (0-5/HPF) Ur Squamous Epith Cells 1-5 /hpf (0-5/HPF) Urine Bacteria Many (>30) H (None) Ur Culture Indicated? Specimen cultured Vol Urine Centrifuged 10ml (spun) Imaging Data CT scan - abdomen/pelvis: Radiologist's Impression: Gallstones some thickening, constipation, small bit of air in the bladder but no thickening, patient does not have any stone or hydro in the left kidney. Results called to myself by Dr. Rahman as he is delayed making report available. MDM Narrative Medical decision making narrative: Patient has a urinalysis and from 12/04/2019 shows positive nitrite urine 30 bacteria 10-30 white cells, 2+ leuks trace ketones no RBCs at that time but positive for E coli on culture with resistance to Cipro and Levaquin. Patient has allergies to Keflex and penicillin reportedly as well as sulfa. Patient was given a dose of Macrobid as she is limited in her antibiotic options. She is responded well to this in the past Vitals here are very appropriate but patient has had complaint of rigors and generally unwell. We will obtain labs, CT KUB as she has had some intermittent flank pain to rule out kidney stone versus pyelo versus other. Labs show white count 8.6 hemoglobin 11 9 platelets of 260, chemistries are overall appropriate glucose is 128- lactate, negative, procalcitonin 0.49. CT CT shows no left-sided changes there is a small amount of air in the bladder, gallstones with thickening gallbladder wall and constipation but patient has not not tender in that location with normal LFTs, lipase. UA repeated Discussed with patient she would like to return home, she feels that she can. She states some of the reason she came by EMS as transportation issues. Patient and I discussed if she feels any worse to return. She asked for prescription to be sent to [place] as they will deliver her antibiotic for Discharge Plan Departure Patient Disposition: Home Clinical Impression: UTI (urinary tract infection) Activity Restrictions/Additional Instructions: Your urine culture from earlier this week is positive you have been started on oral antibiotic. Follow up with your primary care for recheck in the next several days to make sure you are continuing to improve. A prescription for antibiotic was sent to [place] pharmacy. Your CT imaging does show some gallstones and thickening of the gallbladder and quite a bit of stool. Please return for fevers if you are continuing to feel worse, any vomiting, increasing abdominal back or flank pain, increasing weakness, lightheadedness or passing out or other new or concerning changes. Prescriptions: New nitrofurantoin monohyd/m-cryst [Macrobid] 100 mg capsule 100 mg PO Q12H 7 Days Qty: 14 0RF Rx Instructions: must administer with a meal/food No Action gabapentin 100 mg capsule 200 mg PO BEDTIME Qty: 180 1RF phenazopyridine [Pyridium] 100 mg tablet 100 mg PO TID PRN (Reason: pain) Qty: 30 0RF lisinopril 10 mg tablet 10 mg PO DAILY Qty: 90 3RF Estring 2 mg (7.5 mcg /24 hour) ring 1 vag ring vaginal [id number] Qty: 1 0RF nitrofurantoin macrocrystal 100 mg capsule 100 mg PO Q12H Qty: 14 0RF Rx Instructions: must administer with a meal/food omeprazole 20 mg capsule,delayed release(DR/EC) 20 mg PO DAILY Referrals: Christine Oquendo MD [Primary Care Provider] - Stand Alone Forms: Patient Portal/API
[2023-12-07 10:40] LABS: Add Manual Diff / Slide Review NO; Basophils Absolute Auto 0 /uL (0-100); Basophils Percent Auto 0.2 % (0-2); Eosinophils Absolute Auto 0 /uL (0-450); Eosinophils Percent Auto 0.2 % (2-4); Hematocrit 35.3 % (36-46); Hemoglobin 11.9 g/dL (12.0-16.0); Lymphocytes Absolute Auto 300 /uL (1100-4500); Lymphocytes Percent Auto 3.9 % (25-40); Mean Corpuscular HGB Conc 33.7 % (30-36); Mean Corpuscular Hemoglobin 30.1 PG (26-34); Mean Corpuscular Volume 89.5 fL (80-100); Monocytes Absolute Auto 100 /uL (0-900); Monocytes Percent Auto 1.2 % (3-14); Neutrophils Absolute Auto 8200 /uL (1500-7000); Neutrophils Percent Auto 94.5 % (50-75); Platelet Count 260 X10^3/uL (150-400); Red Blood Cell Count 3.95 X10^6/uL (4.0-5.2); Red Cell Distribution Width 14.5 % (11.6-14.8); White Blood Cell Count 8.6 X10^3/uL (4.5-11.0)
[2023-12-07 11:01] LABS: Lactate (Lactic Acid) 1.6 mmol/L (0.7-2.1)
[2023-12-07 11:15] LABS: Alanine Aminotransferase 16 IU/L (<35); Aspartate Aminotransferase 26 IU/L (14-36); BUN Creatinine Ratio 32.3 (6-22); Bilirubin Total 0.8 mg/dL (0.2-1.3); Blood Urea Nitrogen 31 mg/dL (7-17); Calcium 9.9 mg/dL (8.4-10.2); Carbon Dioxide 27 mmol/L (22-32); Chloride 103 mmol/L (98-107); Estimated Glomerular Filt Rate 57 mL/min (>60); Glucose 128 mg/dL (80-110); HEMOLYSIS < 15 (0-50); Potassium 4.2 mmol/L (3.4-5.1); Sodium 137 mmol/L (137-145)
[2023-12-07 11:16] LABS: Albumin 4.8 g/dL (3.5-5.0); Albumin Globulin Ratio 1.2 (1.0-2.8); Alkaline Phosphatase 78 U/L (38-126); Procalcitonin 0.49 ng/mL (<0.5); Total Protein 8.8 g/dL (6.3-8.2)
[2023-12-07] MEDS: NITROFURANTOIN ER 100 MG CAPSULE PO (11:28)
[2023-12-07] MEDS: SODIUM CHLORIDE 0.9% 1,000 ML 1000 ML IV (11:28)
[2023-12-07 12:45] LABS: Bilirubin Urine UA NEGATIVE (NEGATIVE); Color Urine UA YELLOW; Glucose Urine UA NEGATIVE (Negative); Ketones Urine UA NEGATIVE (NEGATIVE); Leukocyte Esterase Urine UA TRACE (NEGATIVE); Nitrite Urine UA NEGATIVE (Negative); Occult Blood Urine UA NEGATIVE (Negative); Protein Urine UA NEGATIVE (Negative); Specific Gravity Urine UA 1.015 (1.000-1.035); Urobilinogen Urine UA 0.2 E.U./dL (0.2)
[2023-12-07 12:51] LABS: pH Urine UA 6.5 (4.5-8.0)
[2023-12-07 12:54] LABS: RBC Urine 0-1/HPF (0-5/HPF); Urine Volume 10mL (spun)
[2023-12-07 12:55] LABS: Appearance Urine UA CLOUDY; Bacteria Urine Many (>30); Culture Indicated Urine Specimen Cultured; Squamous Epithelial Cell Urine 1-5 /HPF (0-5/HPF); WBC Urine 10-30/HPF (0-5/HPF)
[2023-12-10 10:27] LABS: Acinetobacter calcoa-baumannii Not Detected (Not Detect); Bacteroides fragilis Not Detected (Not Detect); Candida albicans Not Detected (Not Detect); Candida auris Not Detected (Not Detect); Candida glabrata Not Detected (Not Detect); Candida krusei Not Detected (Not Detect); Candida parapsilosis Not Detected (Not Detect); Candida tropicalis Not Detected (Not Detect); Cryptococcus neoformans/gatti Not Detected (Not Detect); Enterobacter cloacae complex Not Detected (Not Detect); Enterobacterales Not Detected (Not Detect); Enterococcus faecalis Not Detected (Not Detect); Enterococcus faecium Not Detected (Not Detect); Haemophilus influenzae Not Detected (Not Detect); Klebsiella aerogenes Not Detected (Not Detect); Listeria monocytogenes Not Detected (Not Detect); Neisseria meningitidis Not Detected (Not Detect); Proteus species Not Detected (Not Detect); Pseudomonas aeruginosa Not Detected (Not Detect); Salmonella species Not Detected (Not Detect); Serratia marcescens Not Detected (Not Detect); Staphylococcus epidermidis Not Detected (Not Detect); Staphylococcus lugdunensis Not Detected (Not Detect); Staphylococcus species Not Detected (Not Detect); Stenotrophomonas maltophilia Not Detected (Not Detect); Streptococcus agalactiae (Gr B Not Detected (Not Detect); Streptococcus pneumonia Not Detected (Not Detect); Streptococcus pyogenes (Gr A) Not Detected (Not Detect); Streptococcus species Not Detected (Not Detect)
== END 2023-12-07 13:20 | disposition home or self-care (01) ==
PROVIDERS: Emergency Provider Emergency Medicine; PCP Family Medicine
DX: N39.0 Urinary tract infection, site not specified (principal); Z79.899 Other long term (current) drug therapy
CPT/HCPCS: 36415; 74176; 80053; 81001; 83605; 84145; 85025; 87040; 87077; 87086; 87154; 87186; 99284

== ENCOUNTER 2023-12-10 12:58 | Inpatient (IN) | payer MEDICARE, OTHER, SELFPAY ==
[2023-12-10] VITALS (7 sets, daily range): BP systolic 157–168; BP diastolic 71–84; PULSE 70–82; RESP 16–18; TEMP 36.1–36.8; O2SAT 96–98; BMI 18.3
--- NOTE | 2023-12-10 13:34 | ED_ITS ---
HPI - Recheck/Abnormal Lab/Rx General Chief Complaint: Recheck/Abnormal Lab/Rx Stated Complaint: + blood cultures, return for recheck Time Seen by Provider: 12/10/23 13:33 Source: patient Mode of arrival: Ambulatory History of Present Illness HPI narrative: Patient 87-year-old female with known urinary tract infection with E coli. I called her back today because she is 2 g negative blood cultures. She reports that she has not feeling well she is still having dysuria and urinary frequency. She has not having any fever or chills. She is some mild discomfort. No chest pain shortness of breath or other symptoms. She has been taking Macrobid which is appropriate she has multiple drug allergies which include sulfa, cephalexin, azithromycin, penicillin. Related Data Home Medications Medication Instructions Recorded Confirmed omeprazole 20 mg capsule,delayed 20 mg PO DAILY 05/13/20 09/29/23 release Previous Rx's Medication Instructions Recorded estradiol 2 mg (7.5 mcg/24 hour) 1 vag ring vaginal [id number] #1 ea 09/29/23 vaginal ring (Estring) gabapentin 100 mg capsule 200 mg (2 x 100 mg) PO BEDTIME 09/29/23 #180 caps lisinopril 10 mg tablet 10 mg PO DAILY Control blood 09/29/23 pressure #90 tabs phenazopyridine 100 mg tablet 100 mg PO TID PRN pain #30 tabs 09/29/23 (Pyridium) nitrofurantoin macrocrystal 100 mg 100 mg PO Q12H #14 caps 10/13/23 capsule nitrofurantoin 100 mg PO Q12H 7 days #14 caps 12/07/23 monohydrate/macrocrystals 100 mg capsule (Macrobid) Allergies Allergy/AdvReac Type Severity Reaction Status Date / Time Sulfa (Sulfonamide Allergy Intermediate RASH Verified 12/10/23 13:23 Antibiotics) [SULFA (SULFONAMIDE ANTIBIOTICS)] cephalexin [CEPHALEXIN] Allergy Mild UNKNOWN Verified 12/10/23 13:23 azithromycin Allergy Verified 12/10/23 13:23 Penicillins Allergy Verified 12/10/23 13:23 potassium Allergy Verified 12/10/23 13:23 Patient History Medical History Peripheral neuropathy Hypertension History of gross hematuria Nocturia Postmenopausal atrophic vaginitis History of recurrent UTI (urinary tract infection) UTI (urinary tract infection) Peripheral vascular disease Anemia Gross hematuria History of recurrent UTI (urinary tract infection) Depression GERD (gastroesophageal reflux disease) Raynauds disease Surgical History H/O breast biopsy History of tonsillectomy Family History Brother Age: 92 Polio Brother Cancer Father Cancer Mother Cancer Social History Smoking Status: Never smoker Smoking Status: Never smoker alcohol intake frequency: holidays/special occasions only Substance Use Type: does not use Exam Initial Vital Signs Initial Vital Signs: Vital Signs Temperature 97.8 F 12/10/23 13:15 Pulse Rate 82 12/10/23 13:15 Respiratory Rate 16 12/10/23 13:15 Blood Pressure 168/83 H 12/10/23 13:15 Pulse Oximetry 98 12/10/23 13:15 Oxygen Delivery Method Room Air 12/10/23 13:15 GENERAL: Alert pleasant well-appearing 79-year-old female and in no acute distress. HEENT: Head atraumatic,EOMI, pupils reactive, face symmetric, moist mucous membranes CARDIOVASCULAR: Regular rate and rhythm without murmurs, rubs or gallops. RESPIRATORY: Breath sounds equal bilaterally, no wheezes rales or rhonchi. ABDOMEN: Soft, nondistended over localization of pain mildly tender : No CVA tenderness EXTREMITIES: Normal range of motion, no clubbing or edema. Neurovascularly intact NEUROLOGICAL: Alert and oriented x4.Normal gait and speech. SKIN: Warm, dry, no laceration, no petechiae, no rashes or lesions. Course Orders Ordered: ED Orders 12/10/23 13:40 CBC Auto Diff [Complete Blood Count AUTO DIFF] Stat CMP [Comprehensive Metabolic Panel] Stat Lactate (Lactic Acid) Stat Procalcitonin Stat 12/10/23 13:50 Blood Culture Stat 12/10/23 13:58 UA Complete [Urinalysis and Microscopic] Stat Urine Culture Stat Discontinued Medications Meropenem 500 mg/ Sodium (Chloride) 100 mls @ 200 mls/hr IV NOW ONE Stop: 12/10/23 13:41 Last Infusion: 05/05/24 14:39 Dose: Infused Documented By: Admin: 12/10/23 14:08 Dose: 200 mls/hr Documented By: SB Vital Signs Vital signs: Vital Signs - 8 hr 12/10/23 13:15 Temperature 97.8 F Pulse Rate 82 Respiratory Rate 16 Blood Pressure 168/83 H Pulse Oximetry 98 Oxygen Delivery Method Room Air MDM - Recheck/Abnormal Lab/Rx Lab Data 12/10/23 13:40 12/10/23 13:40 Labs: Lab Results 12/10/23 12/10/23 Range/Units 13:40 13:58 WBC 4.9 (4.5-11.0) X10^3/uL RBC 3.62 L (4.0-5.2) X10^6/uL Hgb 10.8 L (12.0-16.0) g/dL Hct 32.1 L (36-46) % MCV 88.8 (80-100) fL MCH 29.8 (26-34) PG MCHC 33.5 (30-36) % RDW 13.9 (11.6-14.8) % Plt Count 260 (150-400) X10^3/uL Neut % (Auto) 68.9 (50-75) % Lymph % (Auto) 17.9 L (25-40) % [place] % (Auto) 11.2 (3-14) % Eos % (Auto) 1.6 L (2-4) % Baso % (Auto) 0.4 (0-2) % Neut # (Auto) 3300 (4855-2099) /uL Lymph # (Auto) 900 L (7113-7331) /uL [place] # (Auto) 500 (0-900) /uL Eos # (Auto) 100 (0-450) /uL Baso # (Auto) 0 (0-100) /uL Sodium 134 L (137-145) mmol/L Potassium 4.4 (3.4-5.1) mmol/L Chloride 100 (98-107) mmol/L Carbon Dioxide 28 (22-32) mmol/L BUN 24 H (7-17) mg/dL Creatinine 0.90 (0.52-1.04) mg/dL Estimated GFR > 60 (>60) mL/min BUN/Creatinine Ratio 26.7 H (6-22) Glucose 134 H (80-110) mg/dL Lactate 1.7 (0.7-2.1) mmol/L Calcium 9.9 (8.4-10.2) mg/dL Total Bilirubin 0.5 (0.2-1.3) mg/dL AST 25 (14-36) IU/L ALT 18 (<35) IU/L Alkaline Phosphatase 67 (38-126) U/L Total Protein 8.4 H (6.3-8.2) g/dL Albumin 4.5 (3.5-5.0) g/dL Globulin 3.9 (1.7-4.1) g/dL Albumin/Globulin Ratio 1.2 (1.0-2.8) Procalcitonin 1.23 H (<0.5) ng/mL Urine Color [place] Urine Appearance Sl cloudy Urine pH 7.5 (4.5-8.0) Ur Specific [place] 1.010 (1.000-1.035) Urine Protein TNP Urine Glucose (UA) TNP Urine Ketones TNP Urine Occult Blood TNP Urine Nitrate TNP Urine Bilirubin TNP Urine Urobilinogen TNP Ur Leukocyte Esterase TNP Urine RBC 0-1/hpf (0-5/HPF) Urine WBC 1-5/hpf (0-5/HPF) Ur Squamous Epith Cells None seen (0-5/HPF) Amorphous Sediment 3+ Urine Bacteria Few (2-10) H (None) Ur Culture Indicated? Specimen cultured Vol Urine Centrifuged 6 MDM Narrative Medical decision making narrative: Patient 87-year-old female who has a known Gram-negative UTI with 2 g negative blood cultures on Macrobid presents today for a call back. She continues to be symptomatic with her UTI. She overall appears well she is afebrile she has abdominal discomfort. She previously had abdominal CT on December 06 that did not show any obstructing stones or hydronephrosis. Not seeing need today for repeat imaging abdomen is nonacute and very minimally tender. Blood culture from previous is positive for Pseudomonas Blood work has been reviewed WBC 4.9 hemoglobin 10.8, hematocrit 32.1 platelets 260, sodium 134 potassium 4.4 chloride 100 carbon dioxide 28 BUN 24 creatinine 0.9, glucose 134, lactate 1.7, procalcitonin 1.23 previously 0.49 Patient is still symptomatic she is 2 positive Pseudomonas blood cultures with E coli UTI. She is presently looks well she has no sign of severe sepsis or septic shock. Multiple allergies to medication. She was given a dose of meropenem may need double coverage for Pseudomonas Levaquin was added Dr. Oquendo accepts patient. Discharge Plan Departure Patient Disposition: Admitted As Inpatient Clinical Impression: Bacteremia due to Gram-negative bacteria, Acute UTI Admit Date/Time: 12/10/23 15:14 Admit Provider: Christine Oquendo
[2023-12-10] MEDS: MEROPENEM 500 MG in SODIUM CHLORIDE 0.9% 100 ML 200 MG IV (14:08)
[2023-12-10 14:18] LABS: Appearance Urine UA SL CLOUDY; Color Urine UA ORANGE
[2023-12-10 14:20] LABS: pH Urine UA 7.5 (4.5-8.0)
[2023-12-10 14:26] LABS: RBC Urine 0-1/HPF (0-5/HPF); Urine Volume 6; WBC Urine 1-5/HPF (0-5/HPF)
[2023-12-10 14:27] LABS: Amorphous Sediment Urine 3+; Bacteria Urine Few (2-10); Culture Indicated Urine Specimen Cultured; Squamous Epithelial Cell Urine None Seen (0-5/HPF)
[2023-12-10 14:27] LABS: Alanine Aminotransferase 18 IU/L (<35); Albumin 4.5 g/dL (3.5-5.0); Albumin Globulin Ratio 1.2 (1.0-2.8); Alkaline Phosphatase 67 U/L (38-126); Aspartate Aminotransferase 25 IU/L (14-36); BUN Creatinine Ratio 26.7 (6-22); Bilirubin Total 0.5 mg/dL (0.2-1.3); Blood Urea Nitrogen 24 mg/dL (7-17); Calcium 9.9 mg/dL (8.4-10.2); Carbon Dioxide 28 mmol/L (22-32); Chloride 100 mmol/L (98-107); Estimated Glomerular Filt Rate > 60 mL/min (>60); Globulin 3.9 g/dL (1.7-4.1); Glucose 134 mg/dL (80-110); HEMOLYSIS 19 (0-50); Potassium 4.4 mmol/L (3.4-5.1); Sodium 134 mmol/L (137-145); Total Protein 8.4 g/dL (6.3-8.2)
[2023-12-10 14:28] LABS: Lactate (Lactic Acid) 1.7 mmol/L (0.7-2.1)
[2023-12-10 14:36] LABS: Add Manual Diff / Slide Review NO; Basophils Absolute Auto 0 /uL (0-100); Basophils Percent Auto 0.4 % (0-2); Eosinophils Absolute Auto 100 /uL (0-450); Eosinophils Percent Auto 1.6 % (2-4); Hematocrit 32.1 % (36-46); Hemoglobin 10.8 g/dL (12.0-16.0); Lymphocytes Absolute Auto 900 /uL (1100-4500); Lymphocytes Percent Auto 17.9 % (25-40); Mean Corpuscular HGB Conc 33.5 % (30-36); Mean Corpuscular Hemoglobin 29.8 PG (26-34); Mean Corpuscular Volume 88.8 fL (80-100); Monocytes Absolute Auto 500 /uL (0-900); Monocytes Percent Auto 11.2 % (3-14); Neutrophils Absolute Auto 3300 /uL (1500-7000); Neutrophils Percent Auto 68.9 % (50-75); Platelet Count 260 X10^3/uL (150-400); Red Blood Cell Count 3.62 X10^6/uL (4.0-5.2); Red Cell Distribution Width 13.9 % (11.6-14.8); White Blood Cell Count 4.9 X10^3/uL (4.5-11.0)
[2023-12-10 14:44] LABS: Procalcitonin 1.23 ng/mL (<0.5)
[2023-12-10] MEDS: levoFLOXacin 750 MG/150 ML PIGGYBACK 100 MG IV (16:33)
--- NOTE | 2023-12-10 17:53 | P.HP_ITS ---
History of Present Illness History of Present Illness Date Patient Seen: 12/10/23 Time Patient Seen: 17:53 Date of Onset of Symptoms: 12/04/23 Chief complaint: + blood cultures, return for recheck Narrative: 79-year-old female with history of frequent recurrent UTIs and hypertension presenting after urine cultures previously obtained in the ER became positive for E coli and blood cultures returned positive for Pseudomonas. Urine cultures are 2/2 for E coli (resistant to ciprofloxacin, intermitting to levofloxacin), blood cultures are to to S2 for Pseudomonas (pansensitive). After these cultures resulted, the patient was contacted and asked to return to the ER for evaluation. Overall she is feeling stable. No fevers/chills. Continuing to have urinary frequency, urgency and dysuria. Otherwise she feels normal. Symptoms started for her on Monday, 7 days ago. She provided a urine sample in the clinic on Monday and then went to the ER on Monday, 3 days ago. At that time blood and urine cultures were collected. These in the collections that are now positive. After she was seen in the ER, symptoms did improve, which she attributed to the antibiotic that she was given while there. She was discharged on 7 day course of nitrofurantoin. She has not completed this course as she is currently within that 7 days. In the ER today, urine and blood cultures were recollected and are currently pending. CBC shows no leukocytosis. CMP shows mild hyponatremia, she has previously been on the low end of normal. Procalcitonin is slightly elevated to 1.23. Patient does have a multitude of antibiotic allergies which has made treatment of UTIs challenging in the past. She currently has listed allergies to sulfa, Keflex, azithromycin, and penicillins. On discussion with patient today she is not sure what the reaction was to Keflex or when this occurred but recalls many years ago having a rash on her back following penicillin administration. [facility]LY [facility] Medical History Peripheral neuropathy Hypertension History of gross hematuria Nocturia Postmenopausal atrophic vaginitis History of recurrent UTI (urinary tract infection) UTI (urinary tract infection) Peripheral vascular disease Anemia Gross hematuria History of recurrent UTI (urinary tract infection) Depression GERD (gastroesophageal reflux disease) Raynauds disease Surgical History H/O breast biopsy History of tonsillectomy Family History Brother Age: 92 Polio Brother Cancer Father Cancer Mother Cancer Social History household members: spouse Smoking Status: Never smoker Meds Home Medications and Allergies Home Medications Medication Instructions Recorded Confirmed Type omeprazole 20 mg capsule,delayed 20 mg PO DAILY 05/13/20 12/10/23 History release estradiol 2 mg (7.5 mcg/24 hour) 1 vag ring vaginal [id number] #1 ea 09/29/23 12/10/23 Rx vaginal ring (Estring) gabapentin 100 mg capsule 200 mg (2 x 100 mg) PO BEDTIME 09/29/23 12/10/23 Rx #180 caps lisinopril 10 mg tablet 10 mg PO DAILY Control blood 09/29/23 12/10/23 Rx pressure #90 tabs phenazopyridine 100 mg tablet 100 mg PO TID PRN pain #30 tabs 09/29/23 12/10/23 Rx (Pyridium) nitrofurantoin macrocrystal 100 mg 100 mg PO Q12H #14 caps 10/13/23 12/10/23 Rx capsule nitrofurantoin 100 mg PO Q12H 7 days #14 caps 12/07/23 12/10/23 Rx monohydrate/macrocrystals 100 mg capsule (Macrobid) Allergies Allergy/AdvReac Type Severity Reaction Status Date / Time Sulfa (Sulfonamide Allergy Intermediate RASH Verified 12/10/23 13:23 Antibiotics) [SULFA (SULFONAMIDE ANTIBIOTICS)] cephalexin [CEPHALEXIN] Allergy Mild UNKNOWN Verified 12/10/23 13:23 azithromycin Allergy Verified 12/10/23 13:23 Penicillins Allergy Verified 12/10/23 13:23 potassium Allergy Verified 12/10/23 13:23 Review of Systems Review of Systems Narrative: - Fevers -suprapubic pain -abdominal pain -nausea/vomiting + dysuria + urinary frequency + urinary urgency + depressed mood Exam Vital Signs (past 8 hours): - 12/10/23 13:15 12/10/23 13:25 12/10/23 13:30 Temperature 97.8 F Pulse Rate 82 73 74 Respiratory Rate 16 Blood Pressure 168/83 H Pulse Oximetry 98 96 96 Oxygen Delivery Method Room Air 12/10/23 13:47 12/10/23 13:47 Temperature Pulse Rate 70 Respiratory Rate 18 Blood Pressure 157/79 H Pulse Oximetry 96 Oxygen Delivery Method Room Air Oxygen Delivery Method Room Air Narrative Exam Narrative: GEN: Healthy appearing, well-developed, NAD, sitting up in bed eating dinner PSYCH: Good Judgment. AOx3. Normal memory, mood, and affect, although she does note that she is depressed mood HEENT: -Head: NC/AT -Eyes: No discharge or redness -Ears: External ears are normal. -Mouth and throat: MMM CV: warm and well perfused, RRR, no murmurs LUNGS: CTAB, no w/r/c. ABD: Soft, NT/ND, NBS, no masses or organomegaly. : No suprapubic tenderness SKIN: Warm, well perfused. No skin rashes or abnormal lesions NEURO: Ambulating with no limitations. No focal deficits Objective Labs 12/10/23 13:40 12/10/23 13:40 Labs: Laboratory Results - last 24 hr 12/10/23 12/10/23 13:40 13:58 WBC 4.9 RBC 3.62 L Hgb 10.8 L Hct 32.1 L MCV 88.8 MCH 29.8 MCHC 33.5 RDW 13.9 Plt Count 260 Neut % (Auto) 68.9 Lymph % (Auto) 17.9 L [place] % (Auto) 11.2 Eos % (Auto) 1.6 L Baso % (Auto) 0.4 Neut # (Auto) 3300 Lymph # (Auto) 900 L [place] # (Auto) 500 Eos # (Auto) 100 Baso # (Auto) 0 Sodium 134 L Potassium 4.4 Chloride 100 Carbon Dioxide 28 BUN 24 H Creatinine 0.90 Estimated GFR > 60 BUN/Creatinine Ratio 26.7 H Glucose 134 H Lactate 1.7 Calcium 9.9 Total Bilirubin 0.5 AST 25 ALT 18 Alkaline Phosphatase 67 Total Protein 8.4 H Albumin 4.5 Globulin 3.9 Albumin/Globulin Ratio 1.2 Procalcitonin 1.23 H Urine Color [place] Urine Appearance Sl cloudy Urine pH 7.5 Ur Specific [place] 1.010 Urine Protein TNP Urine Glucose (UA) TNP Urine Ketones TNP Urine Occult Blood TNP Urine Nitrate TNP Urine Bilirubin TNP Urine Urobilinogen TNP Ur Leukocyte Esterase TNP Urine RBC 0-1/hpf Urine WBC 1-5/hpf Ur Squamous Epith Cells None seen Amorphous Sediment 3+ Urine Bacteria Few (2-10) H Ur Culture Indicated? Specimen cultured Vol Urine Centrifuged 6 Assessment & Plan Assessment and plan (1) E. coli UTI: Status: Acute (2) Bacteremia due to Pseudomonas: Status: Acute (3) Hypertension: Qualifiers: Hypertension type: unspecified Qualified Code(s): I10 - Essential (primary) hypertension Status: Acute (4) Postmenopausal atrophic vaginitis: Status: Acute (5) History of recurrent UTI (urinary tract infection): Status: Acute (6) Physician orders for life-sustaining treatment (POLST) form indicates patient wish for [id number] status: Status: None Plan 79-year-old female with history of frequent recurrent UTIs and hypertension presenting after urine cultures previously obtained in the ER became positive for E coli and blood cultures returned positive for Pseudomonas. Urine cultures are 2/2 for E coli (resistant to ciprofloxacin, intermitting to levofloxacin), blood cultures are to to S2 for Pseudomonas (pansensitive). Patient does have a multitude of antibiotic allergies which has made treatment of UTIs challenging in the past. She currently has listed allergies to sulfa, Keflex, azithromycin, and penicillins. On discussion with patient today she is not sure what the reaction was to Keflex or when this occurred but recalls many years ago having a rash on her back following penicillin administration. ## Pseudomonas bacteremia: Etiology unclear although the patient has had history of prior Pseudomonas UTIs. Urine collected on growing only E coli at this time. CT abdomen pelvis on 12/06 showed no obstructing stones or hydronephrosis and was otherwise relatively similar to previous CT abdomen pelvis performed in August. No cough or congestion at this time. She has been afebrile in his overall quite well-appearing. She does have asymptomatic gallbladder stone but these have been present for some time as well and seem to be unlikely to be the cause. No skin breaks which could be a source are visible on exam today. She does not have any indwelling catheters or ports. There are calcified plaques and pleural thickening noted within the chest on CT. CT reads as most likely an old granuloma. Also noting lower lobe septal thickening and pulmonary fibrosis. No signs of acute pneumonia or respiratory issues. -admit to inpatient -reviewed antibiotic allergies with pharmacy and patient, we will trial cefepime for pseudomonal coverage as well as E coli coverage. Patient's primary nurse is aware and will remain close to the patient's side at onset of administration. Benadryl and epinephrine available in the Mar if allergic reaction occurs. If there is reaction, we will transitioned to meropenem but due to the patient's frequent urinary tract infections, concern for development of resistant strains and prefer to avoid meropenem for now unless absolutely necessary. With patient, we also discussed that UTIs are quite recurrent for her and if we are able to clear her allergy list of Keflex, treatment options would improve for further future UTIs. She is agreeable and would like to trial cefepime today - repeat CBC in the Am ## E coli UTI: Previously seen by Urology who felt as though frequency of UTIs was secondary to postmenopausal atrophic vaginitis. They recommended topical estrogen cream which the patient was not able to tolerate due to discomfort and side effects. PCP has previously ordered E string as an alternative option but this was too expensive for the patient to trial. We repeated the discussion about this today and she would like to pay to try this. This is not a medication that is on formulary so unable to try today, but order will be placed at discharge. We will contact pharmacy to discuss if there are any alternative options other than topical estrogen cream that could be utilized for management and assistance with UTI prevention -treatment with cefepime as above -we will continue to work on obtaining a workable option for topical estrogen with the hopes to decrease UTI recurrence -outpatient follow-up with Urology ## hypertension -continue home lisinopril 10 mg daily ## depressed mood: Patient noting difficulty with caring for her who has dementia. They live at [facility] together and she is feeling significant burden of being his primary caregiver. He does have an appointment on Monday with his primary care physician. Recommend that Irene ernandez discuss respite care options with him at that time. We also discussed assistance from family but this is not a viable option at this time. And was previously told to discontinue her antidepressant which she feels did help level her mood slightly. She thinks that she was on citalopram. Her mood has worsened since discontinuation. We discussed restarting citalopram and she would like to hold off for now, feeling that acute worsening in her symptoms is contributing to her depressed mood and if she is able to address her UTIs and get some help with caring for her partner her mood will improve significantly. She is also going to Alzheimer's support groups -continue support groups when available -discussed options for antidepressant medications, she will let me know if she would like to trial any of these in the future ## pulsed indicating DNR: Patient reiterates her wishes for DNR again today Code status: DNR Diet: general DVT ppx: Aileen of 2, no pharmacologic ppx indicated (not on hormonal therapy at this time and is still mobile, not significantly differeent from baseline at this time) -->SCDs Quality VTE Deep Vein Thrombosis/Pulmonary Embolism Present on Admission: No
[2023-12-10] MEDS: CEFEPIME 1 GM in SODIUM CHLORIDE 0.9% 100 ML IV (18:49)
[2023-12-10] MEDS: lisinopriL 10 MG TABLET PO (20:23)
[2023-12-10] MEDS: ACETAMINOPHEN 325 MG TABLET 650 MG PO (20:23)
[2023-12-10] MEDS: SODIUM CHLORIDE 0.9% FLUSH 10 ML IV (20:24)
[2023-12-11 00:02] VITALS: BP 158/77; PULSE 66; RESP 16; TEMP 37; O2SAT 98
[2023-12-11] MEDS: PANTOPRAZOLE DR 20 MG TABLET PO (05:40)
[2023-12-11] MEDS: CEFEPIME 1 GM in SODIUM CHLORIDE 0.9% 100 ML IV ×2 (05:40→18:28)
[2023-12-11 06:00] VITALS: BP 173/78; PULSE 68; RESP 16; TEMP 36.4; O2SAT 100
--- NOTE | 2023-12-11 08:02 | PM.PN.1 ---
Subjective Subjective Date Patient Seen: 12/11/23 Time Patient Seen: 07:24 Interval history: 87 yo F admitted with E. coli UTI and pseudomonas bacteremia. She is feeling better today after abx. Still has urinary frequency but fevers. Otherwise feeling normal. Exam Vital Signs (past 8 hours): - 12/11/23 06:00 Temperature 97.6 F Pulse Rate 68 Respiratory Rate 16 Blood Pressure 173/78 H Pulse Oximetry 100 Oxygen Flow Rate 0 Oxygen Delivery Method Room Air Oxygen Flow Rate 0 Narrative Exam Narrative: GEN: Healthy appearing, well-developed, NAD, sleeping comfortably upon entering the room PSYCH: Good Judgment. AOx3. Normal memory, mood, and affect HEENT: -Head: NC/AT -Eyes: No discharge or redness -Ears: External ears are normal. -Mouth and throat: MMM CV: warm and well perfused, RRR, no murmurs LUNGS: CTAB, no w/r/c. ABD: Soft, NT/ND, NBS, no masses or organomegaly. : No suprapubic tenderness SKIN: Warm, well perfused. No skin rashes or abnormal lesions NEURO: Ambulating with no limitations. No focal deficits Objective Labs 12/10/23 13:40 12/10/23 13:40 Labs: Laboratory Results - last 24 hr 12/10/23 12/10/23 13:40 13:58 WBC 4.9 RBC 3.62 L Hgb 10.8 L Hct 32.1 L MCV 88.8 MCH 29.8 MCHC 33.5 RDW 13.9 Plt Count 260 Neut % (Auto) 68.9 Lymph % (Auto) 17.9 L [place] % (Auto) 11.2 Eos % (Auto) 1.6 L Baso % (Auto) 0.4 Neut # (Auto) 3300 Lymph # (Auto) 900 L [place] # (Auto) 500 Eos # (Auto) 100 Baso # (Auto) 0 Sodium 134 L Potassium 4.4 Chloride 100 Carbon Dioxide 28 BUN 24 H Creatinine 0.90 Estimated GFR > 60 BUN/Creatinine Ratio 26.7 H Glucose 134 H Lactate 1.7 Calcium 9.9 Total Bilirubin 0.5 AST 25 ALT 18 Alkaline Phosphatase 67 Total Protein 8.4 H Albumin 4.5 Globulin 3.9 Albumin/Globulin Ratio 1.2 Procalcitonin 1.23 H Urine Color [place] Urine Appearance Sl cloudy Urine pH 7.5 Ur Specific [place] 1.010 Urine Protein TNP Urine Glucose (UA) TNP Urine Ketones TNP Urine Occult Blood TNP Urine Nitrate TNP Urine Bilirubin TNP Urine Urobilinogen TNP Ur Leukocyte Esterase TNP Urine RBC 0-1/hpf Urine WBC 1-5/hpf Ur Squamous Epith Cells None seen Amorphous Sediment 3+ Urine Bacteria Few (2-10) H Ur Culture Indicated? Specimen cultured Vol Urine Centrifuged 6 PFSH Medical History Peripheral neuropathy Hypertension History of gross hematuria Nocturia Postmenopausal atrophic vaginitis History of recurrent UTI (urinary tract infection) UTI (urinary tract infection) Peripheral vascular disease Anemia Gross hematuria History of recurrent UTI (urinary tract infection) Depression GERD (gastroesophageal reflux disease) Raynauds disease Surgical History H/O breast biopsy History of tonsillectomy Family History Brother Age: 92 Polio Brother Cancer Father Cancer Mother Cancer Social History household members: spouse Smoking Status: Never smoker Assessment & Plan Assessment and plan (1) Bacteremia due to Pseudomonas: Status: Acute (2) E. coli UTI: Status: Acute (3) Postmenopausal atrophic vaginitis: Status: Acute (4) History of recurrent UTI (urinary tract infection): Status: Acute (5) Hypertension: Qualifiers: Hypertension type: unspecified Qualified Code(s): I10 - Essential (primary) hypertension Status: Acute Plan 79-year-old female with history of frequent recurrent UTIs and hypertension presenting after urine cultures previously obtained in the ER became positive for E coli and blood cultures returned positive for Pseudomonas. She was admitted for management of E. coli UTI and Pseudomonas bacteremia ## Pseudomonas bacteremia: Suspect 2/2 UTI although Urine collected on 12/06 growing only E coli at this time. Case discussed with ID who contacted lab and noted rare lactose non-fermenting bacteria growing on urine culture in addition to Gram negative bacilli, so potentially 12/06 urine cullture did have pseudomonas as well but it was overgrown by e. coli. No alternative etiology of pseudomonas has been discovered yet and pt is very well appearing. Pt tolerated Cefepime without reaction overnight despite cephalosporin allergy listed in chart - Care discussed with ID, appreciate recommendations - continue cefepime until urine culture and sensitivities from 12/09 results - If sensitivities the same as previous culture (intermediate to Levo, otherwise sensitive) then will treat pseudomonas with Cipro + E. coli wtih Fosamycin - EKG tonight to prepare for cipro, if QTc >470, pt is not a candidate for cipro. If QTc is nml, ok to use Cipro - Cr clearance of 30 based on labs collected yesterday, will dose Cipro based on this: 500mg BID for a 10 day course (Today day 09/16) - referral to [facility] outpt for assistance [facility] recurrent UTI management ## E coli UTI: Urine culture from yesterday growing gram negative bacilli at this time. Plan to treat E. coli component wtih Fosamycin 3g PO x1 if pt able to stop Cefepime as discussed above based on sensitivities. [facility]ed [facility] who compounds estrogen pear suppositories. Will discuss this alternative with the pt for topical estrogen -Continue Cefepime -we will continue to work on obtaining a workable option for topical estrogen with the hopes to decrease UTI recurrence -outpatient follow-up with Urology + ID ## hypertension -increase Lisinopril to 20mg daily ## depressed mood: Patient noting difficulty with caring for her who has dementia. They live at [facility] together and she is feeling significant burden of being his primary caregiver. He does have an appointment on Monday with his primary care physician. Recommend that Irene ernandez discuss respite care options with him at that time. We also discussed assistance from family but this is not a viable option at this time. And was previously told to discontinue her antidepressant which she feels did help level her mood slightly. She thinks that she was on citalopram. Her mood has worsened since discontinuation. We discussed restarting citalopram and she would like to hold off for now, feeling that acute worsening in her symptoms is contributing to her depressed mood and if she is able to address her UTIs and get some help with caring for her partner her mood will improve significantly. She is also going to Alzheimer's support groups -continue support groups when available -discussed options for antidepressant medications, she will let me know if she would like to trial any of these in the future ## pulsed indicating DNR: Patient reiterates her wishes for DNR again today Code status: DNR Diet: general DVT ppx: Aileen of 2, no pharmacologic ppx indicated (not on hormonal therapy at this time and is still mobile, not significantly differeent from baseline at this time) -->SCDs Quality VTE Deep Vein Thrombosis/Pulmonary Embolism Present on Admission: No
[2023-12-11] MEDS: SODIUM CHLORIDE 0.9% FLUSH 10 ML IV ×2 (08:53→21:05)
--- NOTE | 2023-12-11 10:34 | CM.DANOTE ---
Addendum entered by GERA Thompson 12/11/23 13:37: ADD: Call from pt's MD stating cultures returned and pt will need a couple weeks of IV-Abx Cefepime Q24 and pt's Medicare will not cover home infusion but will cover outpt infusion clinic. Sent MD the Physician Order Form for [facility] and MD will complete and send back to SW and plan of likely d/c tomorrow 12/11 after her morning dose of IV-Abx Cefepime. SW called [facility] and made new referral and faxed initial clinicals and they are aware that Provider Order Form to follow and they will work on getting pt on their schedule for Wed. No auth needed for straight Medicare. GEE met bedside with pt and discussed ongoing IV-Abx at discharge and the process for outpt infusion. Pt agreeable and plans to set up transport either through the [facility] transport team or with [facility] for her daily infusion needs. GEE updated RN and plan is to get PICC tomorrow 12/11 when DI RN available in-house and pt will get her morning IV-Abx dose before discharge. Plan: SW to keep [facility] updated tomorrow and confirm pt gets PICC/midline placed tomorrow prior to discharge. GERA Thompson Original Note: Patient is an 87 yo female who was admitted Inpt Status on 12/10/23 for Ecoli/Pseudomonas. Pt has [facility] and [employer] for insurance and her PCP is Dr. Christine Oquendo. EMR was reviewed. Per MD, pt with cultures positive for ecoli and pseudomonas and awaiting further labs and pt started on IV-Abx and likely another 1-2 days pending culture results. GEE met bedside with pt and explained role and she confirms she lives at [facility] in an Independent apt the past 5 years with her spouse who has progressing dementia. Pt ambulates without DME and still drives and denies any hx of HH or SNF. Pt states she has 4 adult children, some who live in [place] and locally, and spouse has 3 adult children locally as well. Pt's DPOA is her Dtr as spouse now with memory issues. Pt has been independently ambulating in room and manages her own ADLs independently. Spouse does not anticipate any needs for herself at discharge and thinks either [facility] can transport her back at d/c or one of their adult children. Dtr Aylin has pt's spouse at their house while pt is admitted. Pt also started attending a CG support group that meets once a week at a local [facility] and has already been talking with [facility] about eventual switch to Assisted Living side and pt also has been reviewing a list of PP CGs to help her spouse before moving into Assisted Living. Pt states he is able to toilet and shower himself and manage most ADLs but over the past 6 months he has had increased difficulty with figuring out simple tasks. Pt confirms she is starting to feel CG burnout and SW strongly encouraged her to begin discussing with family the potential for watching her spouse maybe once a month for a night or two to give her a break and pt plans to begin creating a plan with family now that her spouse is showing more dementia symptoms. Plan: SW to follow closely to confirm plan of discharge back to [facility] apt when medically stable and pt has resources for support with demented spouse and any further identified discharge planning needs. GERA Thompson Discharge Planning/Care Management CM Discharge Assessment Start: 12/11/23 10:32 Freq: Status: Active Protocol: Document 12/11/23 10:32 BF (Rec: 12/11/23 10:34 BF [id number]) Discharge Planning Assessment Assigned Fine Grader GERA Isbell DPOA/Assigned Designee Name Dtr Casandra Jennings Contact Information [phone] Advance Directives? Yes Advance Directives on File Yes: Pt states DNR History Provided By Patient,Medical Record Has Patient been admitted in last 30 No days? Prior Living Arrangements Long-Term Facility Comment [facility] apt Household Members spouse Type of transporation used prior to Drives own vehicle admit Facility Name Admitted From: [facility] Willing to Return to Facility? Yes Independent with ADL's Yes Is patient alert and oriented? Yes Caregiver for Another Yes: spouse with progressing dementia Barriers to Discharge No Discharge Plan Home Transportation Arrangement Likely [facility] or Dtr Referrals Initiated None needed Additional Comment Provided some outpt support services for Caregiver Support Whiteboard Updated in Patient Room with Yes name and ext. # of Fine Grader Review Status In Process Please Provide Date Initial DC 12/11/23 Assessment Was Performed Next Review Type Continued Stay Review
[2023-12-11 12:10] VITALS: BP 139/85; PULSE 78; TEMP 36.6; O2SAT 100
--- NOTE | 2023-12-11 14:17 | DIET.CONS ---
Dietary Consultation Note Admission Date: 12/10/2023 15:14 Assessment: 87 y F admitted for UTI. Nutrition screened for low MNA. Met with pt at bedside who reports gradual loss in weight and lower appetite since fall 2022. Lives at [facility] and has 3 small meals per day based on what is served or snacks she shops for, i.e. cheese and crackers w/ Boost for lunch over a meal. She drinks 1 high jay/high protein Boost per day. Nutrition focused physical exam results: Muscle wasting: -Moderate temporalis loss -Moderate muscle loss in clavicle region (deltoids, trapezius, pectoralis major) -Mild loss interosseous Subcutaneous fat loss: -Mild loss buccal and orbital fat pads Ht: 154.94 cm Wt: 43.998 kg BMI: 18.3 UBW: 48.64 kg 7-9 months ago per pt (-9.5% loss within a year, non-severe) Last BM: 12/10/23 (12/10/23 15:15) MNA: 4 Christophe Score: 22 Diet: 12/10/23 Dinner General (Regular) Diet Diet Modifications: Food Texture: Level 7 - Regular Liquid Consistency: Level 0 - Thin Nutrition Percent Meal Consumed 50% 12/11/23 08:45 Percent Meal Consumed 75% 12/10/23 15:40 Labs: RBC 3.62 X10^6/uL (4.0-5.2) L 12/10/23 13:40 Hgb 10.8 g/dL (12.0-16.0) L 12/10/23 13:40 Hct 32.1 % (36-46) L 12/10/23 13:40 Creatinine 0.90 mg/dL (0.52-1.04) 12/10/23 13:40 Lactate 1.7 mmol/L (0.7-2.1) 12/10/23 13:40 Nutrition Diagnosis: Unintended weight loss r/t to decrease appetite as evidenced by 9.5% weight loss in 7-9 months per patient reports, mild to moderate muscle loss (temporalis, deltoids, trapezius, pectoralis major, interosseous), mild subcutaneous fat loss (buccal and orbital) Interventions: 1. Discussed options for additional kcals/protein daily and small freq meals/snacks. Denied ONS at this time. EER: [id number] kcals (30-35 kcals/kg per BMI) 45-55 g protein (1 g/kg) Monitoring/Evaluations: po intakes Electronically Signed by: Caron Collins 12/11/23 14:17 Clinical Dietitian [address] [id number]
[2023-12-11 18:00] VITALS: BP 170/82; PULSE 76; RESP 18; TEMP 37; O2SAT 98
[2023-12-11 19:50] VITALS: BP 140/72; PULSE 71; RESP 16; TEMP 36.3; O2SAT 99
[2023-12-11 21:04] VITALS: BP 140/72; PULSE 71
[2023-12-11] MEDS: ACETAMINOPHEN 325 MG TABLET 650 MG PO (21:04)
[2023-12-11] MEDS: lisinopriL 10 MG TABLET PO (21:04)
[2023-12-11] MEDS: hydrOXYzine HCL 25 MG TABLET PO (21:05)
[2023-12-12] VITALS: BP 117/61; PULSE 69; RESP 16; TEMP 36.6; O2SAT 97
[2023-12-12 05:35] VITALS: BP 145/80; PULSE 78; RESP 16; TEMP 36.4; O2SAT 97
[2023-12-12] MEDS: PANTOPRAZOLE DR 20 MG TABLET PO (06:09)
[2023-12-12] MEDS: CEFEPIME 1 GM in SODIUM CHLORIDE 0.9% 100 ML IV (06:10)
[2023-12-12 08:29] VITALS: BP 154/73; PULSE 71; RESP 16; TEMP 36.4; O2SAT 98
--- NOTE | 2023-12-12 09:05 | PM.DS.1 ---
History of Present Illness History of Present Illness Date Patient Seen: 12/12/23 Time Patient Seen: 07:45 Chief complaint: + blood cultures, return for recheck Narrative: 79-year-old female with history of frequent recurrent UTIs and hypertension presenting after urine cultures previously obtained in the ER became positive for E coli and blood cultures returned positive for Pseudomonas. Urine cultures are 2/2 for E coli (resistant to ciprofloxacin, intermitting to levofloxacin), blood cultures are to to S2 for Pseudomonas (pansensitive). After these cultures resulted, the patient was contacted and asked to return to the ER for evaluation. Overall she is feeling stable. No fevers/chills. Continuing to have urinary frequency, urgency and dysuria. Otherwise she feels normal. Symptoms started for her on Monday, 7 days ago. She provided a urine sample in the clinic on Monday and then went to the ER on Monday, 3 days ago. At that time blood and urine cultures were collected. These in the collections that are now positive. After she was seen in the ER, symptoms did improve, which she attributed to the antibiotic that she was given while there. She was discharged on 7 day course of nitrofurantoin. She has not completed this course as she is currently within that 7 days. In the ER today, urine and blood cultures were recollected and are currently pending. CBC shows no leukocytosis. CMP shows mild hyponatremia, she has previously been on the low end of normal. Procalcitonin is slightly elevated to 1.23. Patient does have a multitude of antibiotic allergies which has made treatment of UTIs challenging in the past. She currently has listed allergies to sulfa, Keflex, azithromycin, and penicillins. On discussion with patient today she is not sure what the reaction was to Keflex or when this occurred but recalls many years ago having a rash on her back following penicillin administration. Discharge Providers Provider Date of admission: 12/10/23 15:14 Discharge Date: 12/12/23 Primary care physician: Christine Oquendo MD Discharge provider: Radha Briggs MD Summary Hospital Course Discharge Diagnosis: UTI Bacteremia HTN Reactive depression Hospital Course: The pt presented due to be called back in for Pseudomonas growing in her blood culture. The pt was asymptomatic other than dysuria and urinary frequency. She was cautiously initiated on Cefepime, with a listed Cephalexin allergy. The pt tolerated the antibiotic without any allergic response. Her symptom of dysuria improved. ID was consulted, and recommended treatment with Fosamycin for the E coli in the urine, and Ciprofloxacin for the bacteremia, assuming repeat cultures did not show any new sensitivities or organisms. The pts urine culture returned grossman sensitive pseudomonas, with a low colony count. Her blood culture at the time of discharge was still no growth. The pt will discharge on Ciprofloxacin. She will need outpatient f/u with ID due to her recurrent UTIs. She was encouraged to use her vaginal estrogen at discharge as well. Exam Vital Signs (past 8 hours): - 12/12/23 05:35 12/12/23 08:29 Temperature 97.6 F 97.5 F L Pulse Rate 78 71 Respiratory Rate 16 16 Blood Pressure 145/80 H 154/73 H Pulse Oximetry 97 98 Oxygen Flow Rate 0 0 Oxygen Delivery Method Room Air Oxygen Flow Rate 0 Const General: cooperative and healthy appearing Resp Effort & Inspection: normal respiratory effort Auscultation: clear to auscultation bilaterally, no crackles and no wheezes Cardio Rate: regular rate Rhythm: regular rhythm Heart Sounds: S1 normal, S2 normal and no murmurs GI Inspection: non-distended Palpation: soft, No guarding and No tender Auscultation: normal bowel sounds Extrem General: no pedal edema Objective Labs 12/10/23 13:40 12/10/23 13:40 [facility] Medical History Peripheral neuropathy Hypertension History of gross hematuria Nocturia Postmenopausal atrophic vaginitis History of recurrent UTI (urinary tract infection) UTI (urinary tract infection) Peripheral vascular disease Anemia Gross hematuria History of recurrent UTI (urinary tract infection) Depression GERD (gastroesophageal reflux disease) Raynauds disease Surgical History H/O breast biopsy History of tonsillectomy Family History Brother Age: 92 Polio Brother Cancer Father Cancer Mother Cancer Social History household members: spouse Smoking Status: Never smoker Discharge Plan Discharge Plan Patient Disposition: Home Discharge orders & Medications Prescriptions: New lisinopril 10 mg Tablet 20 mg PO BEDTIME Qty: 60 0RF ciprofloxacin HCl 500 mg tablet 500 mg PO BID Qty: 14 0RF Continued gabapentin 100 mg capsule 200 mg PO BEDTIME Qty: 180 1RF Patient Comments: Pt states she does not take this medcation anymore phenazopyridine [Pyridium] 100 mg tablet 100 mg PO TID PRN (Reason: pain) Qty: 30 0RF Estring 2 mg (7.5 mcg /24 hour) ring 1 vag ring vaginal [id number] Qty: 1 0RF Patient Comments: Pt states she no longer takes med omeprazole 20 mg capsule,delayed release(DR/EC) 20 mg PO DAILY Discontinued lisinopril 10 mg tablet 10 mg PO DAILY Qty: 90 3RF nitrofurantoin macrocrystal 100 mg capsule 100 mg PO Q12H Qty: 14 0RF Rx Instructions: must administer with a meal/food nitrofurantoin monohyd/m-cryst [Macrobid] 100 mg capsule 100 mg PO Q12H 7 Days Qty: 14 0RF Rx Instructions: must administer with a meal/food Follow up/Referrals: Christine Oquendo MD [Primary Care Provider] - 1 Week Diet/Activity/Treatments Diet: Diet as Tolerated and Regular Skin/Wound/Dressing Care Report to your healthcare provider any signs of infection, such as:: chills, fever and increased pain Visit Report/Discharge Packet Instructions: DI for Urinary Tract Infection (UTI), Ciprofloxacin Stand Alone Forms: Patient Portal/API, Stroke Signs & Symptoms Discharge Data Primary Care Provider: Christine Oquendo Discharges patient from system. Discharge Date/Time: 12/12/23 10:30 Quality VTE Deep Vein Thrombosis/Pulmonary Embolism Present on Admission: No
[2023-12-12] MEDS: FOSFOMYCIN 3 GM PACKET PO (09:27)
--- NOTE | 2023-12-12 10:24 | CM.DPC ---
DCP Cont. Reviewed EMR and team rounds for status updates. Pt has been medically cleared for home d/c today, she is being discharged with oral antibiotics, no need for a referra; to the [facility]. She is independent, will go to [facility] and moss picker her meds, then will call [facility] for her transport ride back to her apartment. No further DCP needs indicated at this time.
== END 2023-12-12 10:30 | disposition home or self-care (01) | DRG 872 ==
LOC: ED 14:57 → AC 15:14
PROVIDERS: Admitting Provider Family Medicine; Emergency Provider Emergency Medicine; PCP Family Medicine; Referring Provider Emergency Medicine; Visit Provider Family Medicine
DX: R78.81 Bacteremia (principal); N39.0 Urinary tract infection, site not specified; Z16.29 Resistance to other single specified antibiotic; B96.20 Unspecified Escherichia coli [E. coli] as the cause of diseases classified elsewhere; I10 Essential (primary) hypertension; B96.5 Pseudomonas (aeruginosa) (mallei) (pseudomallei) as the cause of diseases classified elsewhere; N95.2 Postmenopausal atrophic vaginitis; F32.89 Other specified depressive episodes; K21.9 Gastro-esophageal reflux disease without esophagitis; Z66 Do not resuscitate; Z79.899 Other long term (current) drug therapy
CPT/HCPCS: 36415; 74176; 80053; 81001; 83605; 84145; 85025; 87040; 87077; 87086; 87154; 87186; 93005; 96365; 99283; 99284; A9270; J0692; J1956; J2185

== ENCOUNTER → 2024-03-22 14:08 | Outpatient (CLI) | payer MEDICARE, OTHER, SELFPAY ==
[2023-12-10 15:15] VITALS: BMI 18.3
== END ==
PROVIDERS: PCP Family Medicine; Visit Provider Nurse Practitioner Family
DX: R30.0 Dysuria (principal)
CPT/HCPCS: 87086

== ENCOUNTER → 2024-04-15 10:53 | Outpatient (CLI) | payer MEDICARE, OTHER, SELFPAY ==
[2023-12-10 15:15] VITALS: BMI 18.3
== END ==
PROVIDERS: PCP Family Medicine; Visit Provider Family Medicine
DX: R30.0 Dysuria (principal); N94.89 Other specified conditions associated with female genital organs and menstrual cycle
CPT/HCPCS: 87077; 87086; 87186; 87210

== ENCOUNTER → 2024-05-24 11:28 | Outpatient (CLI) | payer MEDICARE, OTHER, SELFPAY ==
[2023-12-10 15:15] VITALS: BMI 18.3
== END ==
PROVIDERS: PCP Family Medicine; Visit Provider Nurse Practitioner Family
DX: R30.0 Dysuria (principal)
CPT/HCPCS: 87077; 87086; 87186

== ENCOUNTER → 2024-07-25 11:15 | Outpatient (CLI) | payer MEDICARE, OTHER, SELFPAY ==
[2023-12-10 15:15] VITALS: BMI 18.3
[2024-07-25 12:12] LABS: Appearance Urine UA CLEAR; Bilirubin Urine UA NEGATIVE (NEGATIVE); Color Urine UA YELLOW; Glucose Urine UA NEGATIVE (Negative); Ketones Urine UA NEGATIVE (NEGATIVE); Leukocyte Esterase Urine UA TRACE (NEGATIVE); Nitrite Urine UA NEGATIVE (Negative); Occult Blood Urine UA NEGATIVE (Negative); Protein Urine UA NEGATIVE (Negative); Urobilinogen Urine UA 0.2 E.U./dL (0.2); pH Urine UA 5.5 (4.5-8.0)
[2024-07-25 12:31] LABS: Bacteria Urine Few (2-10); Calcium Oxalate Crystals Urine Few; Culture Indicated Urine Specimen Cultured; RBC Urine None Seen (0-5/HPF); Squamous Epithelial Cell Urine 1-5 /HPF (0-5/HPF); Urine Volume 10mL (spun); WBC Urine 5-10/HPF (0-5/HPF)
== END ==
PROVIDERS: PCP Family Medicine; Referring Provider Urology; Visit Provider Urology
DX: R30.0 Dysuria (principal); N39.0 Urinary tract infection, site not specified
CPT/HCPCS: 81001; 87086